=== PATIENT | female | born 1950 | race Caucasian/White ===

== ENCOUNTER 2016-10-21 18:23 | Emergency (ER) | payer MEDICARE ==
[~2016-10-21] VITALS: Ht 162.6 cm; Wt 88.0 kg
[2016-10-21 18:58] VITALS: BP 152/82; PULSE 75; RESP 16; TEMP 97.7; O2SAT 99
[2016-10-21] MEDS ORDERED: CYCL1TAB29 PO (19:11)
[2016-10-21] MEDS ORDERED: MORP1TAB25 PO (19:11)
[2016-10-21] MEDS ORDERED: CLON1TAB PO (19:11)
[2016-10-21] MEDS ORDERED: SODIUM CHLOR 0.9% 1000 ML INJ 1,000 ML IV ONE (19:11)
[2016-10-21] MEDS ORDERED: ATEN50TA PO (19:15)
[2016-10-21] MEDS ORDERED: SODIUM CHLORIDE 0.9% FLUSH 5 ML FLUSH IVF PRN (19:15)
--- NOTE | 2016-10-21 20:12 | PD ---
HPI Chief Complaint: OD/ Ingestion Time Seen by Provider: 19:11 Travel History International Travel<30 days: No Contact w/Intl Traveler<30days: No Traveled to known affect area: No History of Present Illness HPI 66-year-old female arrives to the ER by EMS. Her was unable to wake her up this afternoon. The patient reports having suffered with insomnia last night. She took 2 tablets of 30 mg sustained release morphine around midnight. 2 hours later she ingested a second dose of morphine, this time to tablets 15 mg morphine. At some point after that perhaps 4 hours later she ingested 2 mg Klonopin. Instead the could not wake her up as she called EMS. EMS gave Narcan. In the ER the patient answers questions and reports the story provided above in addition to chronic pain evidently worse than normal. She has a history of lumbosacral surgery. Additionally she has suffered a hip contusion recently. Finally she reports vomiting after any oral intake yesterday. She denies intentional over dose or intent of self-harm. PFSH Past Medical History Arthritis: Yes Asthma: No Autoimmune Disease: No Blood Disorders: No Anxiety: Yes Depression: Yes Heart Rhythm Problems: No Cancer: Yes (UTERINE CA ) Cardiovascular Problems: Yes High Cholesterol: No Chest Pain: No Congestive Heart Failure: No COPD: No Cerebrovascular Accident: No Diabetes: No Diminished Hearing: No Endocrine: No Gastrointestinal Disorders: Yes GERD: Yes Glaucoma: No Genitourinary: No Headaches: No Hepatitis: No Hiatal Hernia: No Hypertension: Yes Immune Disorder: No Kidney Stones: No Musculoskeletal: Yes Neurologic: No Psychiatric: Yes Respiratory: No Myocardial Infarction: No Renal Failure: No Seizures: No Sickle Cell Disease: No Sleep Apnea: No Thyroid Disease: No Ulcer: No Tetanus Vaccination: < 5 Years Influenza Vaccination: Yes Past Surgical History Abdominal Surgery: Yes (LAP COLLIE, APPENTECTOMY) AICD: No Cardiac Surgery: No Ear Surgery: No Endocrine Surgery: No Eye Surgery: No Genitourinary Surgery: No Gynecologic Surgery: No Joint Replacement: No Neurologic Surgery: Yes (L2-L5 FUSION) Oral Surgery: No Pacemaker: No Thoracic Surgery: No Other Surgery: Yes Social History Alcohol Use: No Tobacco Use: No Substance Use: No Allergies-Medications (Allergen,Severity, Reaction): Coded Allergies: No Known Allergies (Unverified , 10/21/16) Reported Meds & Prescriptions Reported Meds & Active Scripts Active Reported Atenolol 50 Mg Tab 50 Mg PO DAILY Flexeril (Cyclobenzaprine HCl) 10 Mg Tab 10 Mg PO TID Morphine ER (Morphine Sulfate) 30 Mg Tab 30 Mg PO BID Clonazepam 1 Mg Tab 1 Mg PO TID Review of Systems Except as stated in HPI: all other systems reviewed are Neg General / Constitutional: No: Fever, Chills Musculoskeletal: Positive: Pain Physical Exam Narrative GENERAL: 66-year-old female lying supine in bed speaking in full sentences SKIN: Warm and dry. HEAD: Atraumatic. Normocephalic. EYES: Pupils equal and round. No scleral icterus. No injection or drainage. ENT: No nasal bleeding or discharge. Mucous membranes pink and moist. NECK: Trachea midline. No JVD. CARDIOVASCULAR: Regular rate and rhythm. No murmur appreciated. RESPIRATORY: No accessory muscle use. Clear to auscultation. Breath sounds equal bilaterally. GASTROINTESTINAL: Abdomen soft, non-tender, nondistended. Hepatic and splenic margins not palpable. MUSCULOSKELETAL: No obvious deformities. No clubbing. No cyanosis. No edema. NEUROLOGICAL: Awake and alert. Answers questions with normal memory and mentation. There is no focal neurologic deficit and motor function is grossly preserved. PSYCHIATRIC: Chronic pain. Denies suicidal or homicidal ideation. Data Data Last Documented VS Vital Signs Date Time Temp Pulse Resp B/P Pulse Ox O2 Delivery O2 Flow Rate FiO2 10/21/16 18:58 97.7 75 16 152/82 99 VS reviewed Orders Basic Metabolic Panel (Bmp) (10/21/16 19:11) Complete Blood Count With Diff (10/21/16 19:11) Urinalysis - C+S If Indicated (10/21/16 19:11) Iv Access Insert/Monitor (10/21/16 19:11) Ecg Monitoring (10/21/16 19:11) Oximetry (10/21/16 19:11) Sodium Chloride 0.9% Flush (Ns Flush) (10/21/16 19:15) Sodium Chlor 0.9% 1000 Ml Inj (Ns 1000 M (10/21/16 19:11) Drug Screen, Random Urine (10/21/16 19:11) Alcohol (Ethanol) (10/21/16 19:11) Salicylates (Aspirin) (3/20/17 19:11) Tylenol (Acetaminophen) (10/21/16 19:11) Labs Laboratory Tests Test 10/21/16 19:15 White Blood Count 7.8 TH/MM3 Red Blood Count 4.70 MIL/MM3 Hemoglobin 13.6 GM/DL Hematocrit 41.5 % Mean Corpuscular Volume 88.2 FL Mean Corpuscular Hemoglobin 28.9 PG Mean Corpuscular Hemoglobin 32.7 % Concent Red Cell Distribution Width 14.6 % Platelet Count 266 TH/MM3 Mean Platelet Volume 7.8 FL Neutrophils (%) (Auto) 44.6 % Lymphocytes (%) (Auto) 36.9 % Monocytes (%) (Auto) 11.4 % Eosinophils (%) (Auto) 6.5 % Basophils (%) (Auto) 0.6 % Neutrophils # (Auto) 3.5 TH/MM3 Lymphocytes # (Auto) 2.9 TH/MM3 Monocytes # (Auto) 0.9 TH/MM3 Eosinophils # (Auto) 0.5 TH/MM3 Basophils # (Auto) 0.0 TH/MM3 CBC Comment DIFF FINAL Differential Comment Urine Color LIGHT-YELLOW Urine Turbidity CLEAR Urine pH 5.5 Urine Specific [place] 1.011 Urine Protein NEG mg/dL Urine Glucose (UA) NEG mg/dL Urine Ketones NEG mg/dL Urine Occult Blood NEG Urine Nitrite NEG Urine Bilirubin NEG Urine Urobilinogen LESS THAN 2.0 MG/DL Urine Leukocyte Esterase MOD Urine WBC 1 /hpf Urine Squamous Epithelial <1 /hpf Cells Microscopic Urinalysis Comment CULT NOT INDICATED Sodium Level 139 MEQ/L Potassium Level 5.1 MEQ/L Chloride Level 105 MEQ/L Carbon Dioxide Level 27.0 MEQ/L Anion Gap 7 MEQ/L Blood Urea Nitrogen 25 MG/DL Creatinine 0.96 MG/DL Estimat Glomerular Filtration 58 ML/MIN Rate Random Glucose 94 MG/DL Calcium Level 8.9 MG/DL Salicylates Level LESS THAN 1.7 MG/DL Urine Opiates Screen POS Acetaminophen Level LESS THAN 2.0 MCG/ML Urine Barbiturates Screen NEG Urine Amphetamines Screen NEG Urine Benzodiazepines Screen NEG Urine Cocaine Screen NEG Urine Cannabinoids Screen NEG Ethyl Alcohol Level LESS THAN 3 MG/DL [facility] Medical Decision Making Medical Screen Exam Complete: Yes Emergency Medical Condition: Yes Medical Record Reviewed: Yes Differential Diagnosis Opioid overdose, chronic pain, acute or chronic pain, opioid dependence, benzodiazepine overdose Narrative Course Patient has rested comfortably throughout ER stay. Her workup reveals mild prerenal azotemia and is otherwise normal. CBC & BMP Diagram 10/21/16 19:15 Urinalysis no UTI Urine tox screen positive for opiates Alcohol Tylenol salicylates all negative Pt has follow up with primary care provider in two days. We've provided copy of work up today at her request. confirms no intent of self-harm. Pt understands to be very careful with dosing her new pain medications. does at well. Pt has remained aox3 throughout ER stay and is ready for discharge. Diagnosis Primary Impression: Polypharmacy Additional Impressions: Insomnia Qualified Code: G47.00 - Insomnia, unspecified type Chronic pain Qualified Code: G89.29 - Other chronic pain Medication side effect Qualified Code: T88.7XXA - Medication side effect, initial encounter Referrals: Primary Care Physician 2 days Additional Instructions: You have a choice when it comes to health care, and we are glad that you chose [facility]. Hopefully, we have met your expectations on today's visit. You are welcome to return to [facility] at any time, as we are committed to meeting the health care needs of our community. Please use your pain control medications only as prescribed. Please never take any more than is directed by your pain specialist. Med/Other Pt SpecificInfo: No Change to Meds Disposition: 01 DISCHARGE HOME Condition: Crow Paez MD Oct 21, 2016 20:12
[2016-10-21 20:19] LABS: BLOOD, URINE NEG (NEG); GLUCOSE,URINE NEG (NEG); KETONE, URINE NEG (NEG); NITRITE,URINE NEG (NEG); PH, URINE 5.5 (5.0-8.5); SQUAMOUS EPITHELIAL CELL URINE <1 /hpf (0-5); URINE COLOR LIGHT-YELLOW (YELLW/STRAW)
[2016-10-21 20:20] LABS: AUTOMATED NEUTROPHIL # 3.5 TH/MM3 (1.8-7.7); BASOPHIL % 0.6 % (0.0-2.0); EOSINOPHIL # 0.5 TH/MM3 (0-0.4); EOSINOPHIL % 6.5 % (0.0-4.0); HEMATOCRIT 41.5 % (35.0-46.0); HEMO FLAGS DIFF FINAL; LYMPH % 36.9 % (9.0-44.0); LYMPHOCYTE # 2.9 TH/MM3 (1.0-4.8); MEAN CELL VOLUME 88.2 FL (80.0-100.0); MEAN CORPUSCULAR HEMOGLOBIN 28.9 PG (27.0-34.0); MEAN CORPUSCULAR HGB CONC 32.7 % (32.0-36.0); MONO % 11.4 % (0.0-8.0); NEUT % 44.6 % (16.0-70.0); PLATELET COUNT 266 TH/MM3 (150-450); RED CELL DISTRIBUTION WIDTH 14.6 % (11.6-17.2); WHITE BLOOD COUNT 7.8 TH/MM3 (4.0-11.0)
[2016-10-21 20:23] LABS: COMMENT (UR) CULT NOT INDICATED; CULTURE IF INDICATED CULT NOT INDICATED
[2016-10-21 20:25] LABS: AMPHETAMINE, URINE NEG (NEG); BARBITURATES, URINE NEG (NEG); COCAINE, URINE NEG (NEG)
[2016-10-21 20:45] LABS: ACETAMINOPHEN LESS THAN 2.0 MCG/ML (10.0-30.0); ANION GAP 7 MEQ/L (5-15); BLOOD UREA NITROGEN 25 MG/DL (7-18); CHLORIDE 105 MEQ/L (98-107); GLOMERULAR FILTRATION RATE 58 ML/MIN (>89); SODIUM (NA) 139 MEQ/L (136-145)
[2016-10-21 20:52] LABS: POTASSIUM 5.1 MEQ/L (3.5-5.1)
[2016-10-21 21:00] VITALS: BP 128/81; PULSE 67; RESP 16; O2SAT 99
== END 2016-10-21 21:25 | disposition home or self-care (01) ==
LOC: NEPE 18:23
DX: T40.2X1A Poisoning by other opioids, accidental (unintentional), initial encounter (principal); G47.00 Insomnia, unspecified; G89.29 Other chronic pain; R79.89 Other specified abnormal findings of blood chemistry; K21.9 Gastro-esophageal reflux disease without esophagitis; I10 Essential (primary) hypertension
CPT/HCPCS: 80048; 80307; 81001; 85025; 99284; J7030

== ENCOUNTER 2016-12-06 14:50 | Emergency (ER) | payer MEDICARE ==
[~2016-12-06] VITALS: Ht 162.6 cm; Wt 80.0 kg
[~2016-12-06 14:50] MED LIST: ATEN50TA PO; CLON1TAB PO; CYCL1TAB29 PO; MORP1TAB25 PO
[2016-12-06 14:52] VITALS: BP 121/71; PULSE 64; RESP 16; TEMP 98; O2SAT 95
--- NOTE | 2016-12-06 15:16 | PD ---
HPI Chief Complaint: Pain: Acute or Chronic Time Seen by Provider: 15:03 Travel History International Travel<30 days: No Contact w/Intl Traveler<30days: No Traveled to known affect area: No History of Present Illness HPI This Is a 66-year-old female who was sent here by her primary care physician to rule out DVT. She reports over the past month she has been experiencing pain in the lateral aspect of the right calf. She describes it as a throbbing/ aching pain that seems to be localized to the lateral aspect of the right calf. Sometimes with palpation of the right thigh this causes pain to radiate to her right calf. The only female seems to help is the application of ice to her skin. She is on chronic morphine for chronic back pain. She denies any injury. She denies any recent travel, recent surgery. Denies any chest pain, shortness of breath. She saw her primary care physician today and was referred here to rule out DVT. No history of PE or DVT. No other complaints. PFSH Past Medical History Hx Anticoagulant Therapy: Yes Arthritis: Yes Asthma: No Autoimmune Disease: No Blood Disorders: No Anxiety: Yes Depression: Yes Heart Rhythm Problems: No Cancer: Yes (UTERINE CA ) Cardiovascular Problems: Yes (HTN ) High Cholesterol: No Chest Pain: No Congestive Heart Failure: No COPD: No Cerebrovascular Accident: No Diabetes: Yes Patient Takes Glucophage: No Diminished Hearing: No Endocrine: No Gastrointestinal Disorders: Yes GERD: Yes Glaucoma: No Genitourinary: No Headaches: No Hepatitis: No Hiatal Hernia: No Hypertension: Yes Immune Disorder: No Kidney Stones: No Musculoskeletal: Yes Neurologic: No Psychiatric: Yes Respiratory: No Myocardial Infarction: No Renal Failure: No Seizures: No Sickle Cell Disease: No Sleep Apnea: No Thyroid Disease: No Ulcer: No Past Surgical History Abdominal Surgery: Yes (LAP COLLIE, APPENTECTOMY) AICD: No Cardiac Surgery: No Ear Surgery: No Endocrine Surgery: No Eye Surgery: No Genitourinary Surgery: No Gynecologic Surgery: No Joint Replacement: No Neurologic Surgery: Yes (L2-L5 FUSION) Oral Surgery: No Pacemaker: No Thoracic Surgery: No Other Surgery: Yes Social History Alcohol Use: No Tobacco Use: No Substance Use: No Allergies-Medications (Allergen,Severity, Reaction): Coded Allergies: No Known Allergies (Unverified , 10/21/16) Reported Meds & Prescriptions Reported Meds & Active Scripts Active Lidoderm Patch 12 HR (Lidocaine) 5% Patch 1 Patch TOPICAL DAILY PRN Remove patch after 12 hours Reported Atenolol 50 Mg Tab 50 Mg PO DAILY Flexeril (Cyclobenzaprine HCl) 10 Mg Tab 10 Mg PO TID Morphine ER (Morphine Sulfate) 30 Mg Tab 30 Mg PO BID Clonazepam 1 Mg Tab 1 Mg PO TID Review of Systems Except as stated in HPI: all other systems reviewed are Neg Physical Exam Narrative GENERAL: Well-developed well-nourished female in no acute distress SKIN: Warm and dry. There is no erythema, bruising or soft tissue swelling. HEAD: Atraumatic. Normocephalic. EYES: Pupils equal and round. No scleral icterus. No injection or drainage. ENT: No nasal bleeding or discharge. Mucous membranes pink and moist. NECK: Trachea midline. No JVD. CARDIOVASCULAR: Regular rate and rhythm. No murmur appreciated. RESPIRATORY: No accessory muscle use. Clear to auscultation. Breath sounds equal bilaterally. GASTROINTESTINAL: Abdomen soft, non-tender, nondistended. Hepatic and splenic margins not palpable. MUSCULOSKELETAL: No obvious deformities. There is no lower extremity edema. The patient has a negative Homans bilaterally. She has tenderness to palpation to the lateral aspect of the right calf musculature. The Achilles tendon is intact and nontender. There is no tenderness to palpation to the right thigh, knee, ankle or foot. The patient maintains full range of motion of the lower extremities. 2+ dorsalis pedis and posterior tibial pulses bilaterally. NEUROLOGICAL: Awake and alert. No obvious cranial nerve deficits. Motor grossly within normal limits. Normal speech. Data Data Last Documented VS Vital Signs Date Time Temp Pulse Resp B/P Pulse Ox O2 Delivery O2 Flow Rate FiO2 12/06/16 15:07 82 18 12/06/16 14:52 98.0 121/71 95 Orders Us Leg Venous Doppler (12/06/16 15:12) Tibia/Fibula (Ap/Lat) (12/06/16 ) Ketorolac Inj (Toradol Inj) (12/06/16 15:45) [facility] Medical Decision Making Medical Screen Exam Complete: Yes Emergency Medical Condition: Yes Medical Record Reviewed: Yes Differential Diagnosis Muscle strain, muscle cramp, subcutaneous cyst, cellulitis, DVT, subacute fibular fracture, malignancy Narrative Course This is a 66-year-old female with focal lateral right calf pain for 1 month with no injury. On examination her pain is focally localize the lateral proximal right calf and is reproducible palpation. There is no pain with passive or active dorsi and plantar flexion of the ankle, no pain with flexion and extension of the right hip, knee or ankle. There is no evidence of cellulitic changes, compartment syndrome. There is no lower extremity edema. She was sent here by her primary care physician rule out DVT. Doppler ultrasound was performed and is negative. The area fibular x-ray to rule out subacute fibular fracture was performed and is negative. Etiology of this pain is unknown and she is encouraged to follow-up with her primary care physician for further evaluation. She will be discharged with Lidoderm patches which should help with her focal pain. She also takes morphine prescribed by pain management and I don't feel that additional opiate medication is the solution here. Diagnosis Primary Impression: Right calf pain Additional Instructions: Lidoderm patch as needed. Ice pack to effected area as needed. Follow-up with primary care physician. Return for any emergent medical conditions. Med/Other Pt SpecificInfo: Prescription(s) given Scripts Lidocaine Patch 12 HR (Lidoderm Patch 12 HR)5% Patch1 Patch TOPICAL DAILY PRN ( PAIN) #1 BOX Ref 1 Remove patch after 12 hours Prov:Yong Raygoza MD 12/06/16 Disposition: 01 DISCHARGE HOME Condition: Stable Real Lunsford December 06, 2016 15:15
--- NOTE | 2016-12-06 15:37 | RADRPT ---
EXAM DATE/TIME: 12/06/2016 15:23 [facility] COMPARISON: No previous studies available for comparison. INDICATIONS : Right tibia/fibula pain on mid-lateral side. MEDICAL HISTORY : None. SURGICAL HISTORY : None. ENCOUNTER: Initial ACUITY: 1 month PAIN SCORE: 8/10 LOCATION: Right tibia/fibula. FINDINGS: Two view examination of the right tibia demonstrates no evidence of fracture or dislocation. Mild art hritic changes present in the knee. Bony mineralization is normal. The soft tissue structures are in tact. CONCLUSION: Unremarkable examination of the right tibia. Samuel Manrique MD on December 06, 2016 at 15:34 Board Certified Radiologist. This report was verified electronically.
[2016-12-06] MEDS ORDERED: KETOROLAC TROMETHAMINE 60 MG/2 ML (IM) VIAL IM ONE (15:45)
--- NOTE | 2016-12-06 15:53 | RADRPT ---
EXAM DATE/TIME: 12/06/2016 15:34 [facility] COMPARISON: No previous studies available for comparison. INDICATIONS : Bilateral leg swelling. MEDICAL HISTORY : Congestive heart failure. Hypercholesterolemia. Hypertension. Lower extremity ulcers. SURGICAL HISTORY : Umbilical hernia repair. ENCOUNTER: Initial ACUITY: 1 week PAIN SCORE: 10/10 LOCATION: Bilateral legs. TECHNIQUE: Venous ultrasound of the leg was performed from the inguinal ligament to the proximal calf. Real-massiel e, color Doppler and spectral tracing, compression and augmentation techniques were used. FINDINGS: There is normal compressibility of the deep venous system from the inguinal region to the proximal ca lf. No echogenic clot is seen in the lumen of the common femoral, femoral, popliteal, and posterior tibial veins. There is a normal response of the venous system to proximal and distal augmentation an d respiration. CONCLUSION: Normal examination. Samuel Manrique MD on December 06, 2016 at 15:50 Board Certified Radiologist. This report was verified electronically.
[2016-12-06] MEDS ORDERED: LIDO5DIS35 TOPICAL (16:10)
== END 2016-12-06 16:38 | disposition home or self-care (01) ==
LOC: NEPD 14:50
DX: M79.661 Pain in right lower leg (principal)
CPT/HCPCS: 73590; 93971; 96372; 99284; J1885

== ENCOUNTER 2016-12-25 14:37 | Emergency (ER) | payer MEDICARE ==
[~2016-12-25] VITALS: Ht 162.6 cm; Wt 85.0 kg
[~2016-12-25 14:37] MED LIST changes: +LIDO5DIS35 TOPICAL
[2016-12-25 14:38] VITALS: BP 130/81; PULSE 76; RESP 18; TEMP 98.5; O2SAT 96
--- NOTE | 2016-12-25 14:44 | PD ---
Physical Exam Time Seen by Provider: 14:42 Narrative 66yo F c/o L leg pain when she squeezes it and edema x 3days. Denies hx of DVT. Denies anticoagulants. Denies paraesthesias. Denies N,V, F. Patient seen in triage. VS reviewed. Awaiting bed placement. Data Data Last Documented VS Vital Signs Date Time Temp Pulse Resp B/P Pulse Ox O2 Delivery O2 Flow Rate FiO2 12/25/16 14:38 98.5 76 18 130/81 96 Room Air [facility] Supervised Visit with SONU: Rebecca Huerta December 25, 2016 14:44
--- NOTE | 2016-12-25 15:39 | PD ---
HPI Chief Complaint: Edema Time Seen by Provider: 15:39 Travel History International Travel<30 days: No Contact w/Intl Traveler<30days: No Traveled to known affect area: No History of Present Illness HPI 66-year-old female with a history of hypertension and chronic low back pain presents to the emergency department for evaluation of left leg edema for 3 days. Patient denies any injury or trauma to her leg. States that this swelling was sudden onset. States it the swelling has been the same for the last 3 days, no aggravating or alleviating factors. The swelling extends from the knee to the foot. Denies any pain, numbness or tingling, weakness, fever, chills, nausea, vomiting, chest pain, shortness of breath. She does also complain of urinary frequency and urgency incontinence for the last 3-4 months. States she has not seen her doctor about this because her is ill and she has been taking care of him. No other complaints. PFSH Past Medical History Hx Anticoagulant Therapy: Yes Arthritis: Yes Asthma: No Autoimmune Disease: No Blood Disorders: No Anxiety: Yes Depression: Yes Heart Rhythm Problems: No Cancer: Yes (UTERINE CA ) Cardiovascular Problems: Yes (HTN ) High Cholesterol: No Chest Pain: No Congestive Heart Failure: No COPD: No Cerebrovascular Accident: No Diabetes: Yes Diminished Hearing: No Endocrine: No Gastrointestinal Disorders: Yes GERD: Yes Glaucoma: No Genitourinary: No Headaches: No Hepatitis: No Hiatal Hernia: No Hypertension: Yes Immune Disorder: No Kidney Stones: No Musculoskeletal: Yes Neurologic: No Psychiatric: Yes Respiratory: No Myocardial Infarction: No Renal Failure: No Seizures: No Sickle Cell Disease: No Sleep Apnea: No Thyroid Disease: No Ulcer: No Past Surgical History Abdominal Surgery: Yes (LAP COLLIE, APPENTECTOMY) AICD: No Cardiac Surgery: No Ear Surgery: No Endocrine Surgery: No Eye Surgery: No Genitourinary Surgery: No Gynecologic Surgery: No Joint Replacement: No Neurologic Surgery: Yes (L2-L5 FUSION) Oral Surgery: No Pacemaker: No Thoracic Surgery: No Other Surgery: Yes Social History Alcohol Use: No Tobacco Use: No Substance Use: No Allergies-Medications (Allergen,Severity, Reaction): Coded Allergies: No Known Allergies (Unverified , 10/21/16) Reported Meds & Prescriptions Reported Meds & Active Scripts Active Keflex (Cephalexin) 500 Mg Cap 500 Mg PO Q12H 7 Days Lidoderm Patch 12 HR (Lidocaine) 5% Patch 1 Patch TOPICAL DAILY PRN Remove patch after 12 hours Reported Venlafaxine ER 24 HR (Venlafaxine HCl) 150 Mg Tab 150 Mg PO BID Sumatriptan (Sumatriptan Succinate) 100 Mg Tab 100 Mg PO ONCE PRN If a satisfactory response has not been obtained at 2 hours, a second dose may be administered Atenolol 50 Mg Tab 50 Mg PO DAILY Flexeril (Cyclobenzaprine HCl) 10 Mg Tab 10 Mg PO TID Morphine ER (Morphine Sulfate) 30 Mg Tab 30 Mg PO BID Clonazepam 1 Mg Tab 1 Mg PO TID Review of Systems Except as stated in HPI: all other systems reviewed are Neg Physical Exam Narrative GENERAL: Well-nourished and well-developed pleasant female patient in no acute distress who is nontoxic appearing. SKIN: Warm and dry. HEAD: Normocephalic and atraumatic. EYES: No injection, drainage, or hyphema noted. PERRLA. EOMI. ENT: No nasal drainage noted. Oropharynx is clear. NECK: Supple and the trachea is midline. CARDIOVASCULAR: Regular rate and rhythm. RESPIRATORY: Breath sounds are equal bilaterally with no accessory muscle use, wheezing, rhonchi, or crackles. GASTROINTESTINAL: Abdomen is soft, non-tender, and nondistended. MUSCULOSKELETAL: Left leg edema 2+ from knee to foot. DP pulses are 2+ bilaterally. Capillary refills within normal limits. Sensation is intact. Negative Homans sign. No obvious deformities, cyanosis, or ecchymosis is present throughout the upper and lower extremities. Patient has full range of motion without any signs of neurovascular compromise. NEUROLOGICAL: Awake, alert, and oriented. Normal speech and gait. Cranial nerves are grossly intact. Data Data Last Documented VS Vital Signs Date Time Temp Pulse Resp B/P Pulse Ox O2 Delivery O2 Flow Rate FiO2 12/25/16 14:38 98.5 76 18 130/81 96 Room Air Orders Us Leg Venous Doppler (12/25/16 ) Urinalysis - C+S If Indicated (12/25/16 16:55) Basic Metabolic Panel (Bmp) (12/25/16 16:55) Lidocaine 5% Patch.12 Hr (Lidoderm 5% Pa (12/25/16 17:00) Urine Culture (12/25/16 17:00) Labs Laboratory Tests Test 12/25/16 17:00 Urine Color YELLOW Urine Turbidity HAZY Urine pH 8.0 Urine Specific [place] 1.013 Urine Protein NEG mg/dL Urine Glucose (UA) NEG mg/dL Urine Ketones NEG mg/dL Urine Occult Blood NEG Urine Nitrite NEG Urine Bilirubin NEG Urine Urobilinogen LESS THAN 2.0 MG/DL Urine Leukocyte Esterase LARGE Urine RBC 3 /hpf Urine WBC 14 /hpf Urine Squamous Epithelial 1 /hpf Cells Urine Bacteria RARE /hpf Urine Hyaline Casts 1 /lpf Microscopic Urinalysis Comment CULTURE INDICATED Sodium Level 140 MEQ/L Potassium Level 4.3 MEQ/L Chloride Level 104 MEQ/L Carbon Dioxide Level 31.0 MEQ/L Anion Gap 5 MEQ/L Blood Urea Nitrogen 21 MG/DL Creatinine 0.80 MG/DL Estimat Glomerular Filtration 72 ML/MIN Rate Random Glucose 85 MG/DL Calcium Level 8.6 MG/DL MDM Medical Decision Making Medical Screen Exam Complete: Yes Emergency Medical Condition: Yes Differential Diagnosis Lymphedema versus dependent edema versus DVT versus UTI Narrative Course 66-year-old female presents to the emergency department for 3 days history of left leg swelling. Patient is afebrile, vital signs are stable. She does have edema of the left leg. The left lower extremity is neurovascularly intact. Ultrasound of the left leg has been ordered and is pending. She is also reporting several month history of urinary frequency and incontinence. We'll do a urinalysis and BMP. Ultrasound of the left leg is negative for DVT. BMP is unremarkable. Urinalysis shows large leukocyte esterase, 14 white blood cells, rare bacteria. The patient has a urinary tract infection will be treated with Keflex. Discussed with the patient supportive care for edema and advised follow-up as an outpatient with her PCP. Patient verbalizes understanding and agreement with treatment plan. I discussed the case with my attending physician Dr. Dawson who is aware of the patients history, physical examination findings, and treatment plan. Diagnosis Primary Impression: Leg edema, left Additional Impression: Urinary tract infection Qualified Code: N39.0 - Urinary tract infection without hematuria, site unspecified Referrals: Primary Care Physician Patient Instructions: General Instructions, Leg Edema (ED), Urinary Tract Infection in Women (ED) Additional Instructions: Your ultrasound of the left leg is negative for DVT. You do also have a urinary tract infection and will be prescribed antibiotics. Follow-up with your Primary Care Physician. Return to the ED for any acute worsening of symptoms. Med/Other Pt SpecificInfo: Prescription(s) given Scripts Cephalexin (Keflex)500 Mg Pve105 Mg PO Q12H 7 Days Ref 0 Prov:Scooter Dawson MD 12/25/16 Disposition: 01 DISCHARGE HOME Condition: Stable Rebecca Mariscal December 25, 2016 15:39
[2016-12-25] MEDS ORDERED: SUMA100T2 PO (15:44)
[2016-12-25] MEDS ORDERED: VENL150T PO (15:44)
[2016-12-25] MEDS ORDERED: LIDOCAINE HCL 5% PATCH T-DERMAL ONE (17:00)
--- NOTE | 2016-12-25 17:03 | RADRPT ---
EXAM DATE/TIME: 12/25/2016 16:34 [facility] COMPARISON: No previous studies available for comparison. INDICATIONS : Left leg swelling. MEDICAL HISTORY : Arthritis. Uterine cancer. HTN. GERD. Diabetes. Depression. Anxiety. Anticoagulant therapy. SURGICAL HISTORY : Appendectomy. Hysterectomy. L2-L5 fusion. Right knee arthropasty. Right rotator cuff repair. ENCOUNTER: Initial ACUITY: 3 days PAIN SCORE: 0/10 LOCATION: Left leg. TECHNIQUE: Venous ultrasound of the leg was performed from the inguinal ligament to the proximal calf. Real-massiel e, color Doppler and spectral tracing, compression and augmentation techniques were used. FINDINGS: There is normal compressibility of the deep venous system from the inguinal region to the proximal ca lf. No echogenic clot is seen in the lumen of the common femoral, femoral, popliteal, and posterior tibial veins. There is a normal response of the venous system to proximal and distal augmentation an d respiration. CONCLUSION: Normal examination. Samuel Manrique MD on December 25, 2016 at 17:00 Board Certified Radiologist. This report was verified electronically.
--- NOTE | 2016-12-25 17:14 | PD ---
Data Data Last Documented VS Vital Signs Date Time Temp Pulse Resp B/P Pulse Ox O2 Delivery O2 Flow Rate FiO2 12/25/16 14:38 98.5 76 18 130/81 96 Room Air Orders Us Leg Venous Doppler (12/25/16 ) Urinalysis - C+S If Indicated (12/25/16 16:55) Basic Metabolic Panel (Bmp) (12/25/16 16:55) Lidocaine 5% Patch.12 Hr (Lidoderm 5% Pa (12/25/16 17:00) MDM Supervised Visit with SONU: Yes Narrative Course The history, exam, and medical decision-making in the associated mid-level provider note were completed with my assistance. I reviewed and agree with the findings presented. I attest that I had a [id number] encounter with the patient on the same day, and personally performed and documented my assessment and findings in the medical record. *My assessment and Findings: Lower extremity edema, some right calf pain, now left-sided edema, unclear etiology. Ultrasound rule out DVT. We'll check labs, rule out kidney disease. Likely outpatient follow-up for with probably lymphedema. Good pulses, no evidence of arterial insufficiency. Scooter Dawson MD December 25, 2016 17:14
[2016-12-25 17:15] LABS: BACTERIA, URINE RARE /hpf; BLOOD, URINE NEG (NEG); COMMENT (UR) CULTURE INDICATED; CULTURE IF INDICATED CULTURE INDICATED; GLUCOSE,URINE NEG (NEG); HYALINE CAST, URINE 1 /lpf (RARE); KETONE, URINE NEG (NEG); NITRITE,URINE NEG (NEG); SQUAMOUS EPITHELIAL CELL URINE 1 /hpf (0-5); URINE COLOR YELLOW (YELLW/STRAW)
[2016-12-25 17:27] LABS: POTASSIUM 4.3 MEQ/L (3.5-5.1)
[2016-12-25] MEDS ORDERED: CEPH-460 PO (17:34)
== END 2016-12-25 18:39 | disposition home or self-care (01) ==
LOC: NEPD 14:37
DX: R60.0 Localized edema (principal); M79.605 Pain in left leg; N39.0 Urinary tract infection, site not specified; B96.89 Other specified bacterial agents as the cause of diseases classified elsewhere; I10 Essential (primary) hypertension
CPT/HCPCS: 80048; 81001; 87086; 93971; 99284

== ENCOUNTER 2017-02-25 04:52 | Emergency (ER) | payer MEDICARE ==
[~2017-02-25] VITALS: Ht 162.6 cm; Wt 80.0 kg
[~2017-02-25 04:52] MED LIST changes: +CEPH-460 PO; +SUMA100T2 PO; +VENL150T PO
[2017-02-25 04:54] VITALS: BP 126/66; PULSE 78; RESP 16; TEMP 98.5; O2SAT 95
[2017-02-25] MEDS ORDERED: MSIR30 PO (05:08)
--- NOTE | 2017-02-25 05:26 | PD ---
HPI Chief Complaint: Fall Time Seen by Provider: 05:10 Travel History International Travel<30 days: No Contact w/Intl Traveler<30days: No Traveled to known affect area: No History of Present Illness HPI The patient is a 66-year-old female who presents to the emergency department after a mechanical fall with a closed head injury. The patient states she was leaning over when she suddenly lost her balance and fell 4, striking her head on a concrete wall. The patient complains of a hematoma over the superior aspect of her head as well as a laceration above the right eye which bled initially but is currently stopped. The patient's last tetanus shot was greater than 5 years ago. The patient denies any loss of consciousness, did have a mild headache, but took 2 Excedrin which alleviated her headache. The patient denies taking any anticoagulants such as aspirin, Plavix, Coumadin, or novel oral anticoagulants. She denies any Neck pain or focal neurologic deficits. The patient's symptoms are mild to moderate, exacerbated after falling, and there are no current alleviating factors. PFSH Past Medical History Hx Anticoagulant Therapy: Yes Arthritis: Yes Asthma: No Autoimmune Disease: No Blood Disorders: No Anxiety: Yes Depression: Yes Heart Rhythm Problems: No Cancer: Yes (UTERINE CA ) Cardiovascular Problems: Yes (HTN ) High Cholesterol: No Chest Pain: No Congestive Heart Failure: No COPD: No Cerebrovascular Accident: No Diabetes: Yes (BORDERLINE) Patient Takes Glucophage: No Diminished Hearing: No Endocrine: No Gastrointestinal Disorders: Yes GERD: Yes Glaucoma: No Genitourinary: Yes (urinary incontinence) Headaches: No Hepatitis: No Hiatal Hernia: No Hypertension: Yes Immune Disorder: No Kidney Stones: No Musculoskeletal: Yes Psychiatric: Yes Myocardial Infarction: No Renal Failure: No Seizures: No Sickle Cell Disease: No Sleep Apnea: No Thyroid Disease: No Ulcer: No Tetanus Vaccination: > 5 Years Influenza Vaccination: Yes ?: Not Menopausal: Yes Past Surgical History Abdominal Surgery: Yes (LAP COLLIE, APPENTECTOMY) AICD: No Appendectomy: Yes Cardiac Surgery: No Ear Surgery: No Endocrine Surgery: No Eye Surgery: No Genitourinary Surgery: No Gynecologic Surgery: No Hysterectomy: Yes Joint Replacement: No Neurologic Surgery: Yes (L2-L5 FUSION) Oral Surgery: No Pacemaker: No Thoracic Surgery: No Other Surgery: Yes Social History Alcohol Use: No Tobacco Use: No Substance Use: No Allergies-Medications (Allergen,Severity, Reaction): Coded Allergies: No Known Allergies (Unverified , 02/25/17) Reported Meds & Prescriptions Reported Meds & Active Scripts Active Reported Morphine IR (Morphine Sulfate) 30 Mg Tab 30 Mg PO Q8HR PRN Venlafaxine ER 24 HR (Venlafaxine HCl) 150 Mg Tab 150 Mg PO BID Sumatriptan (Sumatriptan Succinate) 100 Mg Tab 100 Mg PO ONCE PRN If a satisfactory response has not been obtained at 2 hours, a second dose may be administered Atenolol 50 Mg Tab 50 Mg PO DAILY Flexeril (Cyclobenzaprine HCl) 10 Mg Tab 10 Mg PO TID Morphine ER (Morphine Sulfate) 30 Mg Tab 30 Mg PO BID Clonazepam 1 Mg Tab 1 Mg PO TID Review of Systems Except as stated in HPI: all other systems reviewed are Neg Eyes: No: Blurred Vision HENT: Positive: Headaches (headache initially that resolved after taking 2 Excedrin), No: Neck Pain Cardiovascular: No: Chest Pain or Discomfort Respiratory: No: Shortness of Breath Gastrointestinal: No: Nausea, Vomiting Skin: Positive Other (laceration above the right eye which bled initially but is currently stopped) Neurologic: Positive: Headache, No: Focal Abnormalities, Paresthesia, Sensory Disturbance Physical Exam Narrative GENERAL: Awake, alert, pleasant 66-year-old female who appears her stated age and is in no acute respiratory distress. SKIN: Focused skin assessment warm/dry. Patient has a 3 cm transverse laceration above the right eyebrow with some dried blood but no active bleeding. HEAD: Hematoma over the right frontal forehead just within the hairline as well as a 3 cm transverse laceration above the right eyebrow. EYES: Pupils equal and round. Pupils are 3 mm bilateral and reactive. EOMs are intact. Patient is a was see fingers at a distance of 2 feet without difficulty. ENT: No nasal bleeding or discharge. Mucous membranes pink and moist. NECK: Trachea midline. No JVD. No tenderness of the cervical vertebrae. CARDIOVASCULAR: Regular rate and rhythm. No murmur appreciated. RESPIRATORY: No accessory muscle use. Clear to auscultation. Breath sounds equal bilaterally. GASTROINTESTINAL: Abdomen soft, non-tender, nondistended. MUSCULOSKELETAL: No obvious deformities. No clubbing. No cyanosis. No edema. NEUROLOGICAL: Awake and alert. No obvious cranial nerve deficits. Motor grossly within normal limits. Normal speech. Nonfocal. Oriented 3. Follows simple commands. PSYCHIATRIC: Appropriate mood and affect; insight and judgment normal. Data Data Last Documented VS Vital Signs Date Time Temp Pulse Resp B/P Pulse Ox O2 Delivery O2 Flow Rate FiO2 02/25/17 04:54 98.5 78 16 126/[address] Brain W/O Iv Contrast(Rout) (02/25/17 ) Tetanus/Diphtheria Tox Adult (Tetanus/Di (02/25/17 05:30) Lidocai-Epi 1%-1:100,000 Inj (Xylocaine- (02/25/17 05:30) MDM Medical Decision Making Medical Screen Exam Complete: Yes Emergency Medical Condition: Yes Medical Record Reviewed: Yes Interpretation(s) Last Impressions Head CT 02/25/17 0000 Signed Impressions: Service Date/Time: Saturday, February 25, 2017 05:26 - CONCLUSION: 1. No acute intracranial abnormality is identified. There is no fracture. 2. Mild subcutaneous soft tissue changes in the right supraorbital region. Samuel Cuellar MD Differential Diagnosis Differential diagnoses includes closed head injury, concussion, laceration, hematoma, contusion, skull fracture, facial fracture, intracranial hemorrhage, subdural hemorrhage, subarachnoid hemorrhage. Narrative Course A CT of the brain was obtained. The patient's laceration was anesthetized 1% lidocaine with epinephrine, irrigated, closed in a single layer fashion. CT the brain reveals subcutaneous air near the laceration site, however, there is no fracture or intracranial hemorrhage. The patient is advised to have her sutures removed in 5-7 days, Tylenol as needed for pain, follow-up with her primary physician. Procedures Procedure Narrative LACERATION LOCATION: Right forehead LENGTH: 3 cm NUMBER OF STITCHES/CHIQUITA: 4 REPAIR: The area of the laceration was prepped with Betadine and sterilely draped. The laceration was infiltrated with 1% lidocaine with epinephrine. The wound was copiously irrigated and explored without evidence of foreign body , tendon injury or neurovascular injury. The wound was closed using 6-0 Ethilon. This was a single layer repair. A sterile dressing was applied. The patient was advised to keep the dressing clean and dry. Patient tolerated the procedure well. Diagnosis Primary Impression: Closed head injury Qualified Code: S09.90XA - Closed head injury, initial encounter Additional Impression: Laceration of face Qualified Code: S01.81XA - Laceration of face, initial encounter Patient Instructions: General Instructions Additional Instructions: Suture removal in 5-7 days. Apply Polysporin twice a day. Wound care instructions. Tylenol as needed for pain. Follow-up with your primary physician. Please provide the patient a copy of her CT results at discharge. Med/Other Pt SpecificInfo: No Change to Meds Disposition: 01 DISCHARGE HOME Condition: Stable Mario Alberto Raza MD Feb 25, 2017 05:26
[2017-02-25] MEDS ORDERED: TETANUS/DIPHTHERIA TOXOID ADULT 0.5 ML VIAL IM ONE (05:30)
[2017-02-25] MEDS ORDERED: LIDOCAINE 1%/EPINEPHrine 1:100,000 SOLN 20 ML VIAL INFIL ONE (05:30)
--- NOTE | 2017-02-25 05:53 | RADRPT ---
EXAM DATE/TIME: 02/25/2017 05:26 [facility] COMPARISON: No previous studies available for comparison. INDICATIONS : Trauma, fell and hit head on wall. Laceration above right eye. RADIATION DOSE: 32.10 CTDIvol (mGy) MEDICAL HISTORY : Hypertension. Gastroesophageal reflux disease. Uterine cancer. SURGICAL HISTORY : Appendectomy. Cholecystectomy.Hysterectomy. ENCOUNTER: Initial ACUITY: 1 day PAIN SCALE: 0/10 LOCATION: cranial TECHNIQUE: Multiple contiguous axial images were obtained of the head. Using automated exposure control and adj ustment of the mA and/or kV according to patient size, radiation dose was kept as low as reasonably a chievable to obtain optimal diagnostic quality images. DICOM format image data is available electro nically for review and comparison. FINDINGS: CEREBRUM: The ventricles are normal. No evidence of midline shift, mass lesion, hemorrhage or acute infarction . No extra-axial fluid collections are seen. POSTERIOR FOSSA: The cerebellum and brainstem are intact. The 4th ventricle is midline. The cerebellopontine angle i s unremarkable. EXTRACRANIAL: There is subcutaneous inflammatory change and air in the right supraorbital region. SKULL: The calvaria is intact. No evidence of skull fracture. CONCLUSION: 1. No acute intracranial abnormality is identified. There is no fracture. 2. Mild subcutaneous soft tissue changes in the right supraorbital region. Samuel Cuellar MD on February 25, 2017 at 5:49 Board Certified Radiologist. This report was verified electronically.
== END 2017-02-25 06:57 | disposition home or self-care (01) ==
LOC: NEPE 04:52
DX: S09.90XA Unspecified injury of head, initial encounter (principal); S01.81XA Laceration without foreign body of other part of head, initial encounter; W18.39XA Other fall on same level, initial encounter; Z23 Encounter for immunization
CPT/HCPCS: 12013; 70450; 90471; 90714

== ENCOUNTER 2017-03-11 01:29 | Inpatient (IN) | payer MEDICARE ==
[~2017-03-11] VITALS: Ht 162.6 cm; Wt 80.0 kg
[~2017-03-11 01:29] MED LIST changes: -CEPH-460 PO; -LIDO5DIS35 TOPICAL; +MSIR30 PO
[2017-03-11 01:32] VITALS: BP 185/101; PULSE 75; RESP 18; O2SAT 100
--- NOTE | 2017-03-11 01:39 | PD ---
HPI Chief Complaint: Chest Pain Time Seen by Provider: 01:39 Travel History International Travel<30 days: No Contact w/Intl Traveler<30days: No Traveled to known affect area: No History of Present Illness HPI The patient is a 66 year old female who presents to the [facility] emergency department with a history of chest heaviness that began at 3 PM at her doctor's office today. She was at her pain management doctor's office for continued treatment of chronic back pain. She began to have a headache and took 2 excedrin. She then took an Imitrex because Excedrin was not helping. She took her blood pressure and noticed that her blood pressure was elevated. She has associated left hand tingling. The pain is in the left side of her chest. She has associated shortness of breath. She denies having any nausea or vomiting. She denies having any diaphoresis. She is followed by pain management for right sciatica and chronic back pain. Related to her elevated blood pressure she took an old prescription 5 mg of lisinopril and an extra atenolol 50 mg. At 11 PM. She denies any history of coronary artery disease. She had a stress test last 10 years ago. The patient does report having some right lower extremity pain related to a stress fracture in the right tibia. She has a walking boot in place. Otherwise on review of systems, the patient denies any recent fevers, cough, congestion, neck pain, abdominal pain, vomiting, diarrhea, urinary symptoms, or neurologic symptoms. PFSH Past Medical History Narrative Medical The patient's past medical history is significant for stress fracture right tibia, chronic back pain, hypertension, migraine headaches. Hx Anticoagulant Therapy: Yes Arthritis: Yes Asthma: No Autoimmune Disease: No Blood Disorders: No Anxiety: Yes Depression: Yes Heart Rhythm Problems: No Cancer: Yes (UTERINE CA ) Cardiovascular Problems: Yes (HTN ) High Cholesterol: No Chest Pain: No Congestive Heart Failure: No COPD: No Cerebrovascular Accident: No Diabetes: Yes (BORDERLINE) Diminished Hearing: No Endocrine: No Gastrointestinal Disorders: Yes GERD: Yes Glaucoma: No Genitourinary: Yes (urinary incontinence) Headaches: No Hepatitis: No Hiatal Hernia: No Hypertension: Yes Immune Disorder: No Kidney Stones: No Musculoskeletal: Yes Psychiatric: Yes Myocardial Infarction: No Renal Failure: No Seizures: No Sickle Cell Disease: No Sleep Apnea: No Thyroid Disease: No Ulcer: No ?: Not Menopausal: Yes Past Surgical History Narrative Surgical The patient's past surgical history is significant for a lap cholecystectomy, lumbar surgery, SI joint sx right side, appendectomy, hysterectomy due to cervical CA. Abdominal Surgery: Yes (LAP COLLIE, APPENTECTOMY) AICD: No Appendectomy: Yes Cardiac Surgery: No Ear Surgery: No Endocrine Surgery: No Eye Surgery: No Genitourinary Surgery: No Gynecologic Surgery: No Hysterectomy: Yes Joint Replacement: No Neurologic Surgery: Yes (L2-L5 FUSION) Oral Surgery: No Pacemaker: No Thoracic Surgery: No Other Surgery: Yes Social History Alcohol Use: No Tobacco Use: No Substance Use: No Allergies-Medications (Allergen,Severity, Reaction): Coded Allergies: No Known Allergies (Unverified , 03/11/17) Reported Meds & Prescriptions Reported Meds & Active Scripts Active Protonix (Pantoprazole Sodium) 20 Mg Tab 20 Mg PO BID Aspirin EC (Aspirin) 81 Mg Tabdr 81 Mg PO DAILY Reported Morphine IR (Morphine Sulfate) 30 Mg Tab 30 Mg PO Q8HR PRN Venlafaxine ER 24 HR (Venlafaxine HCl) 150 Mg Tab 150 Mg PO BID Sumatriptan (Sumatriptan Succinate) 100 Mg Tab 100 Mg PO ONCE PRN If a satisfactory response has not been obtained at 2 hours, a second dose may be administered Atenolol 50 Mg Tab 50 Mg PO DAILY Flexeril (Cyclobenzaprine HCl) 10 Mg Tab 10 Mg PO TID Morphine ER (Morphine Sulfate) 30 Mg Tab 30 Mg PO BID Clonazepam 1 Mg Tab 1 Mg PO TID Review of Systems Except as stated in HPI: all other systems reviewed are Neg General / Constitutional: No: Fever Eyes: No: Visual changes HENT: No: Headaches Cardiovascular: Positive: Chest Pain or Discomfort, Dyspnea on exertion Respiratory: Positive: Shortness of Breath Gastrointestinal: No: Abdominal Pain Genitourinary: No: Dysuria Musculoskeletal: No: Pain Skin: No Rash Neurologic: Positive: Headache, Paresthesia, No: Weakness, Focal Abnormalities , Change in Mentation, Slurred Speech, Sensory Disturbance Psychiatric: No: Depression Endocrine: No: Polydipsia Hematologic/Lymphatic: No: Easy Bruising Physical Exam Narrative General: The patient is a well-developed well-nourished female in no acute distress. Head and Neck exam: Head is normocephalic atraumatic. Eyes: EOMI, pupils are equal round and reactive to light. Nose: Midline septum with pink mucous membranes Mouth: Dentition unremarkable. Moist mucus membranes. Posterior oropharynx is not erythematous. No tonsillar hypertrophy. Uvula midline. Airway patent. Neck: No palpable lymphadenopathy. No nuchal rigidity. No thyromegaly. Cardiovascular: Regular rate and rhythm without murmurs, gallops, or rubs. No pulse deficit to the extremities and simultaneous auscultation and palpation of her radial artery. Lungs: Clear to auscultation bilaterally. No wheezes, rhonchi, or rales. Abdomen: Soft, without tenderness to palpation in all 4 quadrants of the abdomen. No guarding, rebound, or rigidity. Normal bowel sounds are audible. No tenderness on palpation of McBurney's point. Negative [place] sign. Extremities: No clubbing, cyanosis, or edema. 2+ pulses in all 4 extremities. The patient has a walking boot in place on the right leg related to a stress fracture. Back: No spinous process tenderness to palpation. No costovertebral angle tenderness to palpation. Neurologic Exam: Grossly nonfocal. Skin Exam: No rash noted. Intact skin that is warm and dry. Data Data Last Documented VS Vital Signs Date Time Temp Pulse Resp B/P Pulse Ox O2 Delivery O2 Flow Rate FiO2 03/11/17 01:59 121/77 03/11/17 01:59 75 18 100 Room Air Orders Electrocardiogram (03/11/17 01:49) B-Type Natriuretic Peptide (03/11/17 01:49) Ckmb (Isoenzyme) Profile (03/11/17 01:49) Complete Blood Count With Diff (03/11/17 01:49) Comprehensive Metabolic Panel (03/11/17 01:49) Magnesium (Mg) (03/11/17 01:49) Prothrombin Time / Inr (Pt) (03/11/17:49) Act Partial Throm Time (Ptt) (03/11/17:49) Troponin I (03/11/17:49) Lipase (03/11/17 01:49) Chest, Single Ap (03/11/17:49) Ecg Monitoring (03/11/17:49) Bilateral Bp Monitoring (03/11/17:49) Iv Access Insert/Monitor (03/11/17 01:49) Oximetry (03/11/17 01:49) Oxygen Administration (03/11/17 01:49) Aspirin Chew (Aspirin Chew) (03/11/17 02:00) Sodium Chloride 0.9% Flush (Ns Flush) (03/11/17 02:00) Nitroglycerin Sl (Nitrostat Sl) (03/11/17 02:00) Ct Brain W/O Iv Contrast(Rout) (03/11/17 02:26) Admit Order (Ed Use Only) (03/11/17 03:39) Labs Laboratory Tests Test 03/11/17 03/11/17 02:00 02:55 Prothrombin Time 10.6 SEC Prothromb Time International 1.0 RATIO Ratio Activated Partial 28.4 SEC Thromboplast Time Sodium Level 140 MEQ/L Potassium Level 3.9 MEQ/L Chloride Level 103 MEQ/L Carbon Dioxide Level 29.5 MEQ/L Anion Gap 8 MEQ/L Blood Urea Nitrogen 19 MG/DL Creatinine 0.99 MG/DL Estimat Glomerular Filtration 56 ML/MIN Rate Random Glucose 97 MG/DL Calcium Level 9.2 MG/DL Magnesium Level 1.9 MG/DL Total Bilirubin 0.2 MG/DL Aspartate Amino Transf 16 U/L (AST/SGOT) Alanine Aminotransferase 20 U/L (ALT/SGPT) Alkaline Phosphatase 109 U/L Total Creatine Kinase 49 U/L Troponin I 0.03 NG/ML B-Type Natriuretic Peptide 210 PG/ML Total Protein 7.7 GM/DL Albumin 3.6 GM/DL Lipase 100 U/L White Blood Count 8.1 TH/MM3 Red Blood Count 4.28 MIL/MM3 Hemoglobin 12.5 GM/DL Hematocrit 37.3 % Mean Corpuscular Volume 87.1 FL Mean Corpuscular Hemoglobin 29.3 PG Mean Corpuscular Hemoglobin 33.6 % Concent Red Cell Distribution Width 14.8 % Platelet Count 219 TH/MM3 Mean Platelet Volume 8.0 FL Neutrophils (%) (Auto) 58.2 % Lymphocytes (%) (Auto) 28.9 % Monocytes (%) (Auto) 7.7 % Eosinophils (%) (Auto) 4.4 % Basophils (%) (Auto) 0.8 % Neutrophils # (Auto) 4.7 TH/MM3 Lymphocytes # (Auto) 2.3 TH/MM3 Monocytes # (Auto) 0.6 TH/MM3 Eosinophils # (Auto) 0.4 TH/MM3 Basophils # (Auto) 0.1 TH/MM3 CBC Comment DIFF FINAL Differential Comment MDM Medical Decision Making Medical Screen Exam Complete: Yes Emergency Medical Condition: Yes Medical Record Reviewed: Yes Interpretation(s) Last Impressions Head CT 03/11/17225 Signed Impressions: Service Date/Time: Saturday, March 11, 2017 02:38 - CONCLUSION: Normal examination. Freddie Dolan MD Chest X-Ray 03/11/17 0149 Signed Impressions: Service Date/Time: Saturday, March 11, 2017 01:56 - CONCLUSION: No acute disease. Freddie Dolan MD Differential Diagnosis Acute coronary syndrome, versus pulmonary embolism, versus anxiety disorder, versus poorly controlled hypertension, versus pleurisy, versus musculoskeletal strain, versus pneumonia Narrative Course During the course of the patients emergency department visit, the patients history, examination, and differential diagnosis were reviewed with the patient. The patient had IV access obtained and blood work sent for analysis. The patient states on a cardiac rehabilitation program director with oximetry and blood pressure monitoring. An ECG was done on arrival. The patient's ECG reveals a sinus rhythm heart rate of 66, no acute ST segment elevation or depression, T waves are inverted in V1, QRS duration is 88 ms, QTC 375 ms. The patient was initially provided aspirin 162 mg by mouth 1. Nitroglycerin sublingual times one. The patients laboratory studies were reviewed and remarkable for a CBC that is unremarkable. CMP is remarkable for a BUN of 19, GFR 56, CPK 49, troponin I 0.03, BNP 210, lipase 100, PT 10.6, PTT 28.4 per Radiology studies were reviewed and remarkable for a CT scan of the brain that showed no acute abnormality. Chest x-ray showed no acute cardiopulmonary disease. The patients results were discussed with the patient, including the plan of care. I explained that further testing and/ or monitoring is indicated based on the patients history, examination, and/ or laboratory findings. Therefore, I recommended admission for additional evaluation. The patient expressed understanding and was agreeable with this plan. The patient was admitted to the hospital in stable condition and sent to a bed under the care of chest pain center. Diagnosis Primary Impression: Chest pain, rule out acute myocardial infarction Admitting Information Admitting Physician Requests: Observation Scripts Pantoprazole (Protonix)20 Mg Tab20 Mg PO BID #60 TAB Ref 0 Prov:Jone Ramírez DO 03/11/[address] (Aspirin EC)81 Mg Tabdr81 Mg PO DAILY #30 TAB Ref 0 Prov:Jone Ramírez DO 03/11/17 Mitzy Betancur MD Mar 11, 2017 01:39
[2017-03-11 01:59] VITALS: BP 121/77
[2017-03-11] MEDS ORDERED: ASPIRIN 81 MG CHEW TAB PO ONE (02:00)
[2017-03-11] MEDS ORDERED: NITROGLYCERIN 0.4 MG SL 25 TABS/BTL SL ONE (02:00)
[2017-03-11] MEDS ORDERED: SODIUM CHLORIDE 0.9% FLUSH 10 ML FLUSH IVF PRN (02:00)
--- NOTE | 2017-03-11 02:21 | RADRPT ---
EXAM DATE/TIME: 03/11/2017 01:56 [facility] COMPARISON: No previous studies available for comparison. INDICATIONS : Chest pain. MEDICAL HISTORY : Hypertension. SURGICAL HISTORY : None. ENCOUNTER: Initial ACUITY: 1 day PAIN SCORE: 0/10 LOCATION: Bilateral chest FINDINGS: A single view of the chest demonstrates the lungs to be symmetrically aerated without evidence of mas s, infiltrate or effusion. The cardiomediastinal contours are unremarkable. Osseous structures are intact. ACDF hardware overlies the cervical spine. Nathan and screws fixation of the upper lumbar spine. CONCLUSION: No acute disease. Freddie Dolan MD on March 11, 2017 at 2:20 Board Certified Radiologist. This report was verified electronically.
[2017-03-11 02:27] LABS: APTT (PATIENT) 28.4 SEC (24.3-30.1); PROTHROMBIN TIME - PATIENT 10.6 SEC (9.8-11.6)
[2017-03-11 02:39] LABS: ALT (GPT) 20 U/L (10-53); ANION GAP 8 MEQ/L (5-15); AST (GOT) 16 U/L (15-37); BICARBONATE 29.5 MEQ/L (21.0-32.0); BLOOD UREA NITROGEN 19 MG/DL (7-18); CHLORIDE 103 MEQ/L (98-107); GLOMERULAR FILTRATION RATE 56 ML/MIN (>89); MAGNESIUM 1.9 MG/DL (1.5-2.5); POTASSIUM 3.9 MEQ/L (3.5-5.1); SODIUM (NA) 140 MEQ/L (136-145)
[2017-03-11 02:43] LABS: ALKALINE PHOSPHATASE 109 U/L (45-117); TOTAL BILIRUBIN ADULT 0.2 MG/DL (0.2-1.0)
[2017-03-11 02:44] LABS: CREATINE KINASE 49 U/L (26-192)
--- NOTE | 2017-03-11 03:04 | RADRPT ---
EXAM DATE/TIME: 03/11/2017 02:38 [place] COMPARISON: CT BRAIN W/O CONTRAST, February 25, 2017, 5:26. INDICATIONS : Cephalgia. RADIATION DOSE: 31.89 CTDIvol (mGy) MEDICAL HISTORY : Hypertension. Gastroesophageal reflux disease. Uterine cancer. SURGICAL HISTORY : Hysterectomy. Appendectomy. ENCOUNTER: Initial ACUITY: 1 day PAIN SCALE: 7/10 LOCATION: cranial TECHNIQUE: Multiple contiguous axial images were obtained of the head. Using automated exposure control and adj ustment of the mA and/or kV according to patient size, radiation dose was kept as low as reasonably a chievable to obtain optimal diagnostic quality images. DICOM format image data is available electro nically for review and comparison. FINDINGS: CEREBRUM: The ventricles are normal for age. No evidence of midline shift, mass lesion, hemorrhage or acute in farction. No extra-axial fluid collections are seen. POSTERIOR FOSSA: The cerebellum and brainstem are intact. The 4th ventricle is midline. The cerebellopontine angle i s unremarkable. EXTRACRANIAL: The visualized portion of the orbits is intact. SKULL: The calvaria is intact. No evidence of skull fracture. CONCLUSION: Normal examination. Freddie Dolan MD on March 11, 2017 at 3:02 Board Certified Radiologist. This report was verified electronically.
[2017-03-11 03:28] LABS: AUTOMATED NEUTROPHIL # 4.7 TH/MM3 (1.8-7.7); BASOPHIL # 0.1 TH/MM3 (0-0.2); BASOPHIL % 0.8 % (0.0-2.0); EOSINOPHIL # 0.4 TH/MM3 (0-0.4); EOSINOPHIL % 4.4 % (0.0-4.0); HEMATOCRIT 37.3 % (35.0-46.0); HEMO FLAGS DIFF FINAL; LYMPH % 28.9 % (9.0-44.0); LYMPHOCYTE # 2.3 TH/MM3 (1.0-4.8); MEAN CELL VOLUME 87.1 FL (80.0-100.0); MEAN CORPUSCULAR HEMOGLOBIN 29.3 PG (27.0-34.0); MEAN CORPUSCULAR HGB CONC 33.6 % (32.0-36.0); MONO % 7.7 % (0.0-8.0); NEUT % 58.2 % (16.0-70.0); PLATELET COUNT 219 TH/MM3 (150-450); RED BLOOD COUNT 4.28 MIL/MM3 (4.00-5.30); RED CELL DISTRIBUTION WIDTH 14.8 % (11.6-17.2); WHITE BLOOD COUNT 8.1 TH/MM3 (4.0-11.0)
[2017-03-11 04:40] VITALS: O2SAT 99
[2017-03-11] MEDS ORDERED: LORazepam 2 MG/ML VIAL IV PUSH ONE (04:45)
[2017-03-11] MEDS ORDERED: SODIUM CHLORIDE 0.9% FLUSH 10 ML FLUSH IV FLUSH PRN (04:45)
[2017-03-11 05:02] VITALS: BP 155/89; PULSE 59; RESP 16; O2SAT 100
[2017-03-11 06:39] VITALS: PULSE 80
[2017-03-11 08:05] VITALS: BP 131/85; PULSE 64; RESP 12; TEMP 98.7; O2SAT 96
[2017-03-11] MEDS ORDERED: HEPARIN SODIUM - IV 10,000 UNITS/10 ML VIAL IV ONE (08:15)
[2017-03-11] MEDS ORDERED: ATORVASTATIN 80 MG TAB PO ONE (08:15)
[2017-03-11] MEDS ORDERED: HEPARIN-D5W INJ 250 ML IV SCH (08:15)
--- NOTE | 2017-03-11 08:23 | EKG ---
Date Performed: 03/11/2017 Time Performed: 04:51:32 PTAGE: 66 years EKG: SINUS BRADYCARDIA WITH FIRST DEGREE AV BLOCK ABNORMAL ECG Since PREVIOUS TRACING , no significant change noted PREVIOUS TRACIN10/29/2005 23.09 DOCTOR: Mary Florez Interpretating Date/Time 03/11/2017 08:22:23
--- NOTE | 2017-03-11 08:24 | EKG ---
Date Performed: 03/11/2017 Time Performed: 01:51:42 PTAGE: 66 years EKG: Sinus rhythm NORMAL ECG Since previous tracing, no significant change noted NO PREVIOUS TRACING DOCTOR: Mary Florez Interpretating Date/Time 03/11/2017 08:23:10
[2017-03-11] MEDS ORDERED: VENLAFAXINE HCL XR 75 MG CAP PO SCH (09:00)
[2017-03-11] MEDS ORDERED: NITROGLYCERIN 2% OINT 1 GM PACKET TOPICAL SCH ×2 (09:00→14:00)
[2017-03-11] MEDS ORDERED: SODIUM CHLORIDE 0.9% FLUSH 10 ML FLUSH IV FLUSH SCH (09:00)
[2017-03-11] MEDS ORDERED: METOPROLOL TARTRATE 25 MG TAB PO SCH (09:00)
[2017-03-11] MEDS ORDERED: clonazePAM 1 MG TAB PO SCH (09:00)
--- NOTE | 2017-03-11 09:27 | HHI.HP ---
[facility] Non-Staff Admission Diagnosis cp r/o DC Diagnoses: Chief Complaint: Chest pain Travel History International Travel<30 Days: No Contact w/Intl Traveler <30 Da: No Traveled to Known Affected Are: No History of Present Illness Written by Mina Leija, acting as scribe for Dr. Ramírez on 03/11/17 at 09:27. This note was transcribed by [email or web address] Quezada. I, Dr. Vipul Ramírez personally performed the history, physical exam, and medical decision making; and confirmed the accuracy of the information in the transcribed note. Authenticated by Dr. Vipul Ramírez on 03/11/17 at 23:46. 66-year-old female with past medical history of chronic pain, anxiety/depression , HTN, migraines who presented for chest pain. Patient states that last night she was sitting watching a movie with her and developed midsternal chest pain. She describes the pain as an elephant sitting on her chest. She also had associated left hand and arm tingling. She states the pain was initially 7/10 in severity, and has been constant since that time, but is down to 3/10 and currently located under her left breast. She had associated "indigestion", but no vomiting, sweating, or shortness of breath. The patient states that yesterday around 6 PM she began having headache and was been noted to have slightly elevated blood pressure 140/110 at her pain management doctor. She states she continued to feel poorly last night and her blood pressure was higher at 160/110. She did take an extra atenolol and an old lisinopril due to high blood pressure at home. She denies any prior history of heart disease, diabetes, tobacco use. The patient used to take a baby aspirin every night, but has been out of aspirin for the last week. Review of Systems Except as stated in HPI: all other systems reviewed are Neg Past Family Social History Past Medical History Chronic back and hip pain Anxiety/depression Hypertension Migraines Past Surgical History Cholecystectomy Appendectomy Lower back surgery Hysterectomy due to cervical cancer Reported Medications Reported Meds & Active Scripts Active Reported Morphine IR (Morphine Sulfate) 30 Mg Tab 30 Mg PO Q8HR PRN Venlafaxine ER 24 HR (Venlafaxine HCl) 150 Mg Tab 150 Mg PO BID Sumatriptan (Sumatriptan Succinate) 100 Mg Tab 100 Mg PO ONCE PRN If a satisfactory response has not been obtained at 2 hours, a second dose may be administered Atenolol 50 Mg Tab 50 Mg PO DAILY Flexeril (Cyclobenzaprine HCl) 10 Mg Tab 10 Mg PO TID Morphine ER (Morphine Sulfate) 30 Mg Tab 30 Mg PO BID Clonazepam 1 Mg Tab 1 Mg PO TID Allergies: Coded Allergies: No Known Allergies (Unverified , 03/11/17) Active Ordered Medications Current Medications Medications (Trade) Dose Ordered Sig/Fior Route Start Time Stop Time Status Last Admin (NS Flush) 2 ml UNSCH PRN IVF 03/11/17 02:00 (NS Flush) 2 ml UNSCH PRN IV FLUSH 03/11/17 04:45 (NS Flush) 2 ml BID IV FLUSH 03/11/17 09:00 03/11/17 09:52 (Pneumovax-23 Inj) 25 mcg ONCE ONCE IM 03/12/17 10:00 03/12/17 10:01 (Lopressor) 25 mg Q12HR PO 03/11/17 09:00 03/11/17 09:52 (Heparin Inj) 5,000 units UNSCH PRN IV 03/11/17 14:15 Heparin Sodium (Porcine) 2500 units 2,500 units UNSCH PRN IV 03/11/17 14:15 (Heparin-D5W Inj) 250 ml @ 0 mls/hr TITRATE IV 03/11/17 08:15 (KlonoPIN) 1 mg TID PO 03/11/17 09:00 03/11/17 09:52 (Nitroglycerin 2% Oint) 1 inch Q8H TOPICAL 03/11/17 09:00 03/11/17 09:52 (Fioricet 325-50-40) 1 tab Q8H PRN PO 03/11/17 17:00 Family History Cancer in the patient's paternal grandfather, maternal aunt, and father with colon cancer Maternal grandmother had heart attack 3 Social History Denies any alcohol, tobacco, or drug use Retired RN Physical Exam Vital Signs Vital Signs Date Time Temp Pulse Resp B/P Pulse Ox O2 Delivery O2 Flow Rate FiO2 03/11/17 08:05 98.7 64 12 131/85 96 03/11/17 06:39 80 03/11/17 06:39 80 03/11/17 05:02 59 16 155/89 100 Room Air 03/11/17 04:40 99 21 03/11/17 01:59 121/77 03/11/17 01:59 75 18 100 Room Air 03/11/17 01:32 75 18 185/101 100 Physical Exam GENERAL: Well-developed well-nourished. In no acute distress. SKIN: Warm and dry. No lesions noted. HEENT: Normocephalic. Pupils equal and round. Mucous membranes pink and moist. CARDIOVASCULAR: Regular rate and rhythm. No murmur appreciated. RESPIRATORY: No accessory muscle use. Clear to auscultation. Breath sounds equal bilaterally. GASTROINTESTINAL: Abdomen soft, non-tender, nondistended. Bowel sounds x4. MUSCULOSKELETAL: No obvious deformities. No clubbing or cyanosis. No edema. NEUROLOGICAL: Awake and alert. No focal neurological deficits. Moves upper and lower extremities spontaneously. Normal speech. PSYCHIATRIC: Appropriate mood and affect; insight and judgment normal. Laboratory Laboratory Tests Test 03/11/17 03/11/17 03/11/17 03/11/17 02:00 02:55 05:00 08:00 Prothrombin Time 10.6 Prothromb Time International 1.0 Ratio Activated Partial 28.4 Thromboplast Time Sodium Level 140 Potassium Level 3.9 Chloride Level 103 Carbon Dioxide Level 29.5 Anion Gap 8 Blood Urea Nitrogen 19 Creatinine 0.99 Estimat Glomerular Filtration 56 Rate Random Glucose 97 Calcium Level 9.2 Magnesium Level 1.9 Total Bilirubin 0.2 Aspartate Amino Transf 16 (AST/SGOT) Alanine Aminotransferase 20 (ALT/SGPT) Alkaline Phosphatase 109 Total Creatine Kinase 49 95 63 Troponin I 0.03 0.53 0.61 B-Type Natriuretic Peptide 210 Total Protein 7.7 Albumin 3.6 Lipase 100 White Blood Count 8.1 Red Blood Count 4.28 Hemoglobin 12.5 Hematocrit 37.3 Mean Corpuscular Volume 87.1 Mean Corpuscular Hemoglobin 29.3 Mean Corpuscular Hemoglobin 33.6 Concent Red Cell Distribution Width 14.8 Platelet Count 219 Mean Platelet Volume 8.0 Neutrophils (%) (Auto) 58.2 Lymphocytes (%) (Auto) 28.9 Monocytes (%) (Auto) 7.7 Eosinophils (%) (Auto) 4.4 Basophils (%) (Auto) 0.8 Neutrophils # (Auto) 4.7 Lymphocytes # (Auto) 2.3 Monocytes # (Auto) 0.6 Eosinophils # (Auto) 0.4 Basophils # (Auto) 0.1 CBC Comment DIFF FINAL Differential Comment Result Diagram: 03/11/17 0255 03/11/17 0200 Imaging Last Impressions Head CT 03/11/17225 Signed Impressions: Service Date/Time: Saturday, March 11, 2017 02:38 - CONCLUSION: Normal examination. Freddie Dolan MD Chest X-Ray 03/11/17 0149 Signed Impressions: Service Date/Time: Saturday, March 11, 2017 01:56 - CONCLUSION: No acute disease. Freddie Dolan MD Assessment and Plan Assessment and Plan 66-year-old female with past medical history of chronic pain, anxiety/depression , HTN, migraines who presented for chest pain NSTEMI: Chest pain sounds fairly typical. Troponins 0.03, 0.53, 0.61. EKG reviewed with no definite ischemic changes. Chest x-ray clear. -Aspirin, beta jairo, Lipitor 80mg. -Heparin GTT -Cardiology consult -Nitropaste -Lipid profile Headache with history of migraines: Head CT unremarkable. Possibly exacerbated by nitroglycerin. -Avoid Imitrex due to vasoconstriction -Trial of Fioricet Hypertension: Accelerated upon admission, currently controlled. Change atenolol to metoprolol. Monitor and adjust medications as needed. Other chronic medical conditions including anxiety, depression, chronic back pain: Stable at this time and will continue home medications as indicated DVT prophylaxis: On heparin Patient underwent cardiac cath today. No significant CAD found and thus cardiology cleared for discharge. CORONARY ANGIOGRAPHY 1. Left main coronary angiographically normal. 2. Left anterior descending coronary is angiographically normal, large diagonal branch, very small distal LAD itself. 3. Circumflex gives rise to an obtuse marginal branch, angiographically normal. 4. Right coronary is an angiographically normal dominant vessel. CONCLUSION 1. Angiographically normal coronary arteries. We will discharge patient home. Discharge patient to home Condition on discharge: Improved Heart healthy Diet as tolerated Ad Linh activity Rx written: Aspirin 81mg Qday Protonix 20mg BID. Follow-up with primary care physician in one week with lipid profile. Discussed Condition With Patient, Mina Carlin Mar 11, 2017 09:27 Jone Ramírez DO Mar 11, 2017 23:47
[2017-03-11] MEDS ORDERED: ACETAMIN 325 MG/BUTALBITAL 50 MG/CAFFEINE 40 MG TAB PO ONE (09:30)
[2017-03-11 09:59] LABS: HEMATOCRIT 37.8 % (35.0-46.0); MEAN CELL VOLUME 87.3 FL (80.0-100.0); MEAN CORPUSCULAR HEMOGLOBIN 29.1 PG (27.0-34.0); MEAN CORPUSCULAR HGB CONC 33.3 % (32.0-36.0); PLATELET COUNT 210 TH/MM3 (150-450); RED BLOOD COUNT 4.32 MIL/MM3 (4.00-5.30); RED CELL DISTRIBUTION WIDTH 14.9 % (11.6-17.2); REVIEW FLAG FINAL; WHITE BLOOD COUNT 8.3 TH/MM3 (4.0-11.0)
[2017-03-11] MEDS ORDERED: MORPHINE SULFATE 30 MG TAB PO PRN (10:00)
[2017-03-11 10:15] LABS: APTT (PATIENT) 28.9 SEC (24.3-30.1); PROTHROMBIN TIME - PATIENT 10.7 SEC (9.8-11.6)
[2017-03-11] MEDS ORDERED: HEPARIN-NS/PF INJ 500 ML ONE ×2 (11:46→11:50)
[2017-03-11] MEDS ORDERED: MIDAZOLAM HCL 2 MG/2 ML VIAL ONE (11:51)
[2017-03-11] MEDS ORDERED: HEPARIN SODIUM - IV 10,000 UNITS/10 ML VIAL ONE (11:51)
--- NOTE | 2017-03-11 12:25 | CATHPROC ---
[employer] HIS Report Study Information Study Number Admission Scheduled Start Study Start [id number] Mar 11 2017 8:58AM 03/11/2017 Mar 11 2017 11:32AM [place] Service Cardiac Catheterization Admit Source Facility Department Emergency department [facility] - Spray Painter Helper Physician and Clinical Staff Initial Scooter Pickett Welding Pantograph Machine Operator Precious Ashford,BRENDA Welding Pantograph Machine Operator Sosa Rachel BSRN Other cathlab, cathlab Recorder Ron Vance RCIS(BS) Scrub Kat Sow,ADMINISTRATIVE SERVICES SPECIALIST TECH2 Procedures Performed Procedure Location (Site) Vessel Name Coronary Angiograms LCA Left Coronary Coronary Angiograms RCA Right Coronary L Heart Cath Equipment Time Gear Room Keeper Description Size Mfg Part Number Used/Scraped TRANSDUCER, TRDimensions IT Infrastructure SolutionsAVE [id number] 11:35 ORDONEZ ASHFORD * Used W/STOCKCOCK *[id number] *[id number] *[id number] 11:35 [employer]Calls INDUSTRIES PACK, CCL CUSTOM * Used *[id number] 11:35 [email or web address] SUPPORT, ARTERIAL ADULT [id number] Used [id number] 11:35 [employer] PACER PEN, SKIN DUAL W/ RULER * Used *[id number] 12:21 [employer]lio SAFEGUARD 24CM [id number] Used SHEATH, FR6 RADIAL PRELUDE 11:35 [employer] FR 6 [id number] Used EASE 11CM [id number] 11:35 [employer] WIRE, EXCHANGE 260CM 3MMJ 260CM Used *[id number] 11:35 NYCOMED OMNIPAQUE, 350 MG, 150ML 150ML [id number] Used [id number] 11:35 [employer]UMMOND MEDICAL BLANKET,WARM AIR CCL * Used *[id number] History: Current Medications Medication Dosage/Unit Route Frequency Last Date/Time Taken ASA Beta Samina Statins (any) History: Allergies Allergy Reaction No Known Allergies History: Risk Factors Family History of Hypertension Dyslipidemia Previous ID Previous Heart Failure Premature CAD Yes No No No No Prior Valve Prior PCI Prior CABG Surgery No No No Cerebrovascular Peripheral Artery Chronic Lung On Dialysis Diabetes Disease Disease Disease No No No No No History: Symptoms/Diagnosis Selection Items Chest pain History: Stress Tests Stress or Imaging Studies Performed No History: Other Disease Selection Items HTN History: Other Current Smoker No Labs Hgb (g/dl) Hct (%) WBC (l/cumm) Platelets (thousands) 11.60-17.00 35.00-51.00 4.00-11.00 150.00-450.00 12.6 37.8 8.3 210 Glucose (mg/dl) BUN (mg/dl) Creatinine (mg/dl) BUN:Creatinine (1:x) 74.00-106.00 7.00-18.00 0.50-1.30 10.00-20.00 72 19 0.9 21.1 Na (meq/l) K (meq/l) 136.00-145.00 3.50-5.10 140 3.9 INR (PTT:PT) 0.90-1.10 1 Troponin I (ng/ml) CPK-MB (ng/ML) 0.02-0.05 0.50-3.60 0.61 Not Drawn Medication Medication Total Dose (Bolus/Oral) Medication Total Dosage/Unit 1% XYLOCAINE 3 mL FENTANYL 100 mcg NTG (IC) 200 mcg VERSED 4 mg Medications (Bolus/Oral) Medication Time Given Dosage/Unit Administered By Reason VERSED 03/11/2017 12:06:59 PM 2 mg Mc Ashfordantha 2 mg VERSED given in lab by Precious Ashford RN in Right Forearm via Peripheral IV. Ordered by Scooter Ren[place]. FENTANYL 03/11/2017 12:07:09 PM 50 mcg Eddy Ashforda 50 mcg FENTANYL given in lab by Precious Ashford RN in Right Forearm via Peripheral IV. Ordered by Scooter Lora. FENTANYL 03/11/2017 12:11:54 PM 50 mcg Eddy Ashforda 50 mcg FENTANYL given in lab by Precious Ashford RN in Right Forearm via Peripheral IV. Ordered by Scooter Lora. VERSED 03/11/2017 12:12:22 PM 2 mg Dejon, Precious 2 mg VERSED given in lab by Precious Ashford RN in Right Forearm via Peripheral IV. Ordered by Scooter [place]. 1% XYLOCAINE 03/11/2017 12:12:23 PM 3 mL Scooter Lora 3 mL 1% XYLOCAINE given in lab by Scooter Lora in Right Radial via Subcutaneous. Ordered by Scooter Lora. NTG (IC) 03/11/2017 12:13:42 PM 200 mcg Scooter Lora 200 mcg NTG (IC) given in lab by Scooter Lora in Right Radial via Intra-arterial. Medication (Drip) Medication Time Given Dosage/Unit Concentration/Unit Diluent (ml) Solution IV Solutions 03/11/2017 11:36:01 AM 0 mL (IV) 500 NaCl .9 Patient arrived on IV Solutions given by cathlabflynn in Right Forearm via Peripheral IV. Pump/Dr ip Flow = 20 ml/hr using NaCl .9. Ordered by Scooter Lora. Initial Case Assessment Cardiovascular HR Rhythm NIBP Chest Pain 64 sinus 136/86 0 Edema Present Skin color Skin None Normal Warm Dry Circulatory - Right Pulses Dorsalis Pedis Femoral Radial 2 2 2 Scale (0,1,2,3,4,d) Scale (0,1,2,3,4,d) Neurological State Oriented to time-place- Alert Moves all extremities person Respiration - General Respiration Rate SpO2 (%) (B/min) 15 95 Final Case Assessment Cardiovascular HR Rhythm NIBP Chest Pain 57 sinus 119/78 0 Edema Present Skin color Skin None Normal Warm Dry Circulatory - Right Pulses Dorsalis Pedis Femoral Radial 2 2 2 Scale (0,1,2,3,4,d) Scale (0,1,2,3,4,d) Neurological State Oriented to time-place- Alert Moves all extremities person Respiration - General Respiration Rate SpO2 (%) (B/min) 15 95 Chronological Log Time Study Chronological Log 11:35:51 Patient arrived via Bed. Heparin drip DCed per MD upon case picker. 11:35:52 Patient Name, D.O.B, / Armband Verified By R.N. 11:35:52 Consent signed by the physician and the patient and verified by the Spray Pain[employer] staff. 11:35:53 Pre-op and post- op instructions given; patient acknowledges understanding of instructions. 11:35:53 Verbal Stimulation=2 Physical Stimulation=2 Airway=2 Respiration=2 TOTAL=8. (0=absent, 1=li mited, 2=present) 11:35:54 Presedation assessment performed by Spray Painter Helper RN. 11:35:55 Allens test performed on the right radial and ulnar artery. 11:35:56 Immediate Presedation assesment performed by physician. 11:35:56 Patient has been NPO for More than 6Hrs. 11:35:57 Skin Breakdown- none per patient 11:35:58 Patient Warmer Placed on the Table. 11:35:58 Abelino Prominences Protected 11:36:00 A # 20 IV was noted in the Forearm (right). Grade = 0 Patient arrived on IV Solutions given by cathlab, cathlab in Right Forearm via Peripheral IV. P ump/Drip Flow = 20 ml/hr 11:36:01 using NaCl .9. Ordered by Scooter Lora. 11:36:01 History and physical on the chart or being dictated. 11:36:03 Allens test performed on the right radial and ulnar artery. POSITIVE. Assessment: Initial Case, HR=64 BPM, Rhythm=sinus, HUCF=903/86 mmhg, Chest Pain=0, Edema=None, Color=Normal, Skin = Warm, Dry 11:43:59 Right Pulses: Saqib Ped=2, Femoral=2, Radial=2 Neurological: State=Alert, Ox3, BUSBY Respiration: Resp=15 B/min, SpO2=95 % Vitals capture started with the following parameters, Patient=Adult, Interval=5 min, Initial Pr tciqcx=321 mmHg, 11:44:16 Deflation Rate=5 mmHg Vitals capture started with the following parameters, Patient=Adult, Interval=5 min, Initial Pr lsduyz=623 mmHg, 11:45:04 Deflation Rate=5 mmHg 11:45:16 Reference ECG taken 11:45:46 HR=66 bpm, RYXV=388/86 mmhg, SpO2=97.0 %, Resp=12 B/min, Pain=0, Jas=10, Patel=2 11:47:41 HR=64 bpm, EVFM=643/87 mmhg, SpO2=96.0 %, Resp=8 B/min, Pain=0, Jas=10, Patel=2 11:49:41 HR=69 bpm, JDZZ=255/89 mmhg, SpO2=96.0 %, Resp=11 B/min, Pain=0, Jas=10, Patel=2 11:51:22 MD paged 11:51:42 HR=63 bpm, XEFE=418/85 mmhg, SpO2=97.0 %, Resp=19 B/min, Pain=0, Jas=10, Patel=2 11:53:43 HR=66 bpm, GTKX=514/85 mmhg, SpO2=97.0 %, Resp=12 B/min, Pain=0, Jas=10, Patel=2 11:53:59 Right Radial and groin(s) prepped with 2% chlorhexidine, and with a 3 min. waiting time. 11:55:21 Pressure channel 1 zeroed. 11:55:44 HR=66 bpm, WCSO=361/87 mmhg, SpO2=97.0 %, Resp=12 B/min, Pain=0, Jas=10, Patel=2 11:57:43 HR=65 bpm, CVLT=410/84 mmhg, SpO2=90.0 %, Resp=10 B/min, Pain=0, Jas=10, Patel=2 11:59:46 HR=65 bpm, HHJI=803/83 mmhg, SpO2=91.0 %, Resp=9 B/min, Pain=0, Jas=10, Patel=2 12:01:42 HR=67 bpm, BUTK=329/81 mmhg, SpO2=91.0 %, Resp=15 B/min, Pain=0, Jas=10, Patel=2 12:02:59 MD notified again 12:03:01 MD responded 12:03:43 HR=68 bpm, HKFR=280/83 mmhg, SpO2=93.0 %, Resp=11 B/min, Pain=0, Jas=10, Patel=2 12:05:42 HR=65 bpm, WUWK=872/82 mmhg, SpO2=91.0 %, Resp=16 B/min, Pain=0, Jas=10, Patel=2 12:06:38 MD arrived. 12:06:46 Contrast Scanned 12:06:46 Immediate Presedation assesment performed by physician. 12:06:59 2 mg VERSED given in lab by Precious Ashford, RN in Right Forearm via Peripheral IV. Order ed by Scooter Lora. 50 mcg FENTANYL given in lab by Precious Ashford RN in Right Forearm via Peripheral IV. Order ed by Guido, 12:07:09 Scooter. 12:07:43 HR=63 bpm, YIAL=365/84 mmhg, SpO2=92.0 %, Resp=11 B/min, Pain=0, Jas=10, Patel=2 12:09:42 HR=63 bpm, MSIB=442/85 mmhg, SpO2=96.0 %, Resp=12 B/min, Pain=0, Jas=10, Patel=2 12:11:13 Verbal Stimulation=2 Physical Stimulation=2 Airway=2 Respiration=2 TOTAL=8. (0=absent, 1=li mited, 2=present) 12:11:45 HR=63 bpm, FIWC=858/83 mmhg, SpO2=92.0 %, Resp=12 B/min, Pain=0, Jas=10, Patel=2 50 mcg FENTANYL given in lab by Precious Ashford, BRENDA in Right Forearm via Peripheral IV. Order ed by Guido 12:11:54 Scooter. Time Out. Correct patient, correct procedure,correct physician, ,power injector not loaded with contrast with surgical 12:12:03 team present. Time Out Concurred by MD, individual staff and COOK CASHIER FOOD PREP in procedure 12:12:08 Case Start 12:12:10 Verbal Stimulation=2 Physical Stimulation=2 Airway=2 Respiration=2 TOTAL=8. (0=absent, 1=li mited, 2=present) 12:12:22 2 mg VERSED given in lab by Precious Ashford, BRENDA in Right Forearm via Peripheral IV. Order ed by Scooter Lora. 12:12:23 3 mL 1% XYLOCAINE given in lab by Scooter Lora in Right Radial via Subcutaneous. Ordered by Scooter Lora. 12:13:01 Access site was Right Radial Artery. A SHEATH, FR6 RADIAL PRELUDE EASE 11CM FR 6 was advanced into the Radial (right) using the Perc utaneous 12:13:08 technique. 12:13:42 200 mcg NTG (IC) given in lab by Scooter Lora in Right Radial via Intra-arterial. 12:13:45 HR=64 bpm, ZILV=659/73 mmhg, SpO2=95.0 %, Resp=10 B/min, Pain=0, Jas=10, Patel=2 12:14:52 In the Radial (right) the SHEATH, FR6 RADIAL PRELUDE EASE 11CM FR [address] by Scooter Lora. A JR 5.0 INFINITI CATHETER FR 6 was advanced over a wire. OMNIPAQUE, 350 MG, 150ML 150ML was us ed for 12:15:01 injections. Recorded Pressure: LV, HR=?, Condition=Condition 1 12:15:10 (Left Ventricle) LV ?/?/? Recorded Pressure: LV, HR=?, Condition=Condition 1 12:15:30 (Left Ventricle) LV ?/?/? 12:15:44 HR=64 bpm, RXAE=787/83 mmhg, SpO2=94.0 %, Resp=9 B/min, Pain=0, Jas=10, Patel=2 12:15:44 The RCA was injected and visualized at various angles. OMNIPAQUE, 350 MG, 150ML 150ML used . Recorded Pressure: Ao, HR=67, Condition=Condition 1 12:15:57 (Aorta) Ao 126/76/98 After removing the current catheter a JL 3.5 INFINITI CATHETER FR 6 was advanced over a WIRE, E XCHANGE 260CM 12:16:15 3MMJ 260CM. 12:17:45 HR=65 bpm, SDKN=280/77 mmhg, SpO2=94.0 %, Resp=8 B/min, Pain=0, Jas=10, Patel=2 12:18:11 The LCA was injected and visualized at various angles. OMNIPAQUE, 350 MG, 150ML 150ML used . 12:19:14 Catheter was removed 12:19:33 Case End Assessment: Final Case, HR=57 BPM, Rhythm=sinus, MTAW=623/78 mmhg, Chest Pain=0, Edema=None, Color=Normal, Skin = Warm, Dry 12:19:38 Right Pulses: Saqib Ped=2, Femoral=2, Radial=2 Neurological: State=Alert, Ox3, BUSBY Respiration: Resp=15 B/min, SpO2=95 % 12:19:46 HR=58 bpm, VMJB=365/78 mmhg, SpO2=93.0 %, Resp=7 B/min, Pain=0, Jas=10, Patel=2 12:20:11 Catheter(s) removed without difficulty 12:20:13 Radial Compression Device Used. 15 mLs of air placed in SAFEGUARD 24CM. Affected hand 93 % O2 saturation. 12:20:28 No case complications noted. 12:20:29 Cine recording checked. 12:20:30 Bedside Report will be given. 12:20:32 Contrast Scanned 12:20:34 Verbal Stimulation=2 Physical Stimulation=2 Airway=2 Respiration=2 TOTAL=8. (0=absent, 1=l imited, 2=present) 12:20:49 A Left Heart Cath was performed. 12:21:47 HR=62 bpm, AICM=716/71 mmhg, SpO2=93.0 %, Resp=18 B/min, Pain=0, Jas=10, Patel=2 12:23:45 HR=59 bpm, UDKB=736/78 mmhg, SpO2=89.0 %, Resp=8 B/min, Pain=0, Jas=10, Patel=2 12:24:50 Vitals capture stopped. 12:24:51 [facility] - Contrast Media Used In Study Contrast Total Opened (mL) Total Used (mL) Total Wasted (mL) Omnipaque 40 40 0 End Study - Maximum Contrast Load Max Contrast Load (mL) 444.4 End Study - Radiation Exposure Fluoro Time (minutes) 1.4 End Study - Patient Disposition Complications Transferred To Interventional Outcome No Spray Painter Helper Holding No attempt made
[2017-03-11] MEDS ORDERED: MISC INFORMATION XX ONE (13:00)
[2017-03-11] MEDS ORDERED: ASPI81TA11 PO (13:03)
[2017-03-11] MEDS ORDERED: PANT20 PO (13:03)
[2017-03-11] MEDS ORDERED: ACETAMINOPHEN 500 MG CPLT PO PRN (14:00)
[2017-03-11] MEDS ORDERED: ACETAMINOPHEN 325 MG TAB PO ONE (14:00)
[2017-03-11] MEDS ORDERED: HEPARIN SODIUM - IV 10,000 UNITS/10 ML VIAL IV PRN ×2 (14:15)
--- NOTE | 2017-03-11 16:46 | EKG ---
Date Performed: 03/11/2017 Time Performed: 08:00:45 PTAGE: 66 years EKG: SINUS BRADYCARDIA WITH FIRST DEGREE AV BLOCK ABNORMAL ECG Since PREVIOUS TRACING , no significant change noted PREVIOUS TRACIN03/11/2017 04.51 DOCTOR: Mary Florez Interpretating Date/Time 03/11/2017 16:44:37
[2017-03-11] MEDS ORDERED: ACETAMIN 325 MG/BUTALBITAL 50 MG/CAFFEINE 40 MG TAB PO PRN (17:00)
--- NOTE | 2017-03-11 17:28 | MB ---
cc: ANGELA YUSUF DATE OF CONSULTATION 03/11/2017 INDICATION Ewe-ML-sptqveafe SD. HISTORY OF PRESENT ILLNESS A 66-year-old female without prior history of known heart disease who began experiencing chest pain yesterday afternoon at her doctor's office. Apparently she has a history of some chronic back pain issue, was seen at her pain management doctor's office when she developed this substernal chest pain. She had some associated shortness of breath. Denies any nausea but did have some diaphoresis. She was sent over to the emergency department. There the initial electrocardiogram was unremarkable. She did have first troponin negative but ruled in on second and third troponin for gfb-ME-aigyyxqnr SD. She currently denies any active chest pain. PAST MEDICAL HISTORY 1. She has a history of prior stress fracture right tibia. 2. Chronic back pain. 3. Hypertension. 4. Migraine headaches. 5. Uterine cancer. 6. Diabetes. 7. Urinary incontinence. 8. Laparoscopic cholecystectomy. 9. Appendectomy. 10. Hysterectomy. 11. Lumbar surgery. ALLERGIES NO KNOWN DRUG ALLERGIES. MEDICATIONS Home medications: 1. Morphine. 2. Venlafaxine. 3. Sumatriptan. 4. Atenolol. 5. Flexeril. 6. Clonazepam. SOCIAL HISTORY Denies alcohol, tobacco or drug use. REVIEW OF SYSTEMS 12-point review of systems was performed and negative unless otherwise noted in the history of present illness. PHYSICAL EXAMINATION VITAL SIGNS: Temperature 97, pulse 64, blood pressure 131/85 mmHg. GENERAL: Alert and oriented times three in no acute distress. HEENT: Exam shows pupils reactive to light and accommodation, extraocular movements are intact. NECK: No elevation of jugular venous distention. No thyromegaly. No lymphadenopathy. No carotid bruits. LUNGS: Clear to auscultation bilaterally. CARDIOVASCULAR: Regular rate and rhythm without murmurs, rubs or gallops. ABDOMEN: Nontender, nondistended. Good bowel sounds. No hepatosplenomegaly. EXTREMITIES: Show no clubbing, cyanosis or edema. Good peripheral pulses. NEUROLOGIC: Cranial nerves intact. Motor and sensory grossly intact. LABORATORY DATA WBC 8.3, hemoglobin 12.6, platelet count 210. INR is 1.0. Sodium 140, potassium 3.9, BUN is 19, creatinine 0.99. Troponin 0.61. Electrocardiogram sinus rhythm, no significant ischemic changes. ASSESSMENT 1. Chn-XA-vxlblthib SD 2. Hypertension. 3. Diabetes. PLAN Given the patient's suggestive symptoms, elevated troponin, her presentation is consistent with acute coronary syndrome. We discussed the risks, benefits and alternatives of cardiac catheterization. She is agreeable to proceed forward. No utility at this point for stress testing. I will make her n.p.o. Called the catheterization lab and anticipate cardiac cath later this morning. MD ROSENDA Zuniga/KK /10:10 AM /5:08 PM
--- NOTE | 2017-03-11 18:09 | MA ---
cc: ANGELA YUSUF MD DATE OF CATHETERIZATION 03/11/17 INDICATION Icx-CO-vxrbpxlkd WI. PROCEDURE PERFORMED 1. Fluoroscopy with interpretation. 2. Left heart catheterization 3. Coronary angiography. METHOD The risks, benefits, alternatives discussed with the patient. The patient understood, consented to the procedure. The patient brought to the cardiac catheterization lab and placed on the catheterization table. Right wrist was prepped and draped in sterile fashion. Right wrist was anesthetized with 2% lidocaine. Right radial artery is cannulated, 6-Spanish 7 cm sheath was placed without difficulty. Left heart catheterization: Intraoperative hemodynamics measured at 126/5 mmHg. CORONARY ANGIOGRAPHY 1. Left main coronary angiographically normal. 2. Left anterior descending coronary is angiographically normal, large diagonal branch, very small distal LAD itself. 3. Circumflex gives rise to an obtuse marginal branch, angiographically normal. 4. Right coronary is an angiographically normal dominant vessel. CONCLUSION 1. Angiographically normal coronary arteries. PLAN Not clear for the underlying etiology to her elevated troponin, could be demand mediated or possibly vasospasm. Either way no obstructive disease requiring intervention. She can be treated conservatively. She can follow up with her primary care physician as an outpatient. We will sign off. Okay to discharge later today. MD ROSENDA Zuniga/YONG /12:21 PM /5:56 PM
[2017-03-11] MEDS ORDERED: MORPHINE SULFATE 30 MG CONTROLLED RELEASE TAB PO SCH (21:00)
--- NOTE | 2017-03-11 23:56 | HHI.PR ---
Addendum to Inpatient Note Additional Information Ms. Gonzalez came in with chest pain with typical features (substernal chest pain , radiating to the left arm). Her troponins were significantly elevated. Thus, NSTEMI was the working diagnosis. She was quickly evaluated by Cardiology and patient underwent cardiac cath which did not show any significant CAD. This was somewhat unexpected given patient's elevated troponins. Since cath was negative , patient was appropriately discharged home. However, it is felt that initial admission to full admission status was appropriate due to NSTEMI. Jone Ramírez DO Mar 11, 2017 23:56
[2017-03-12] MEDS ORDERED: INFLUENZA VIRUS VACCINE (QUADRIVALENT) 0.5 ML SYR IM ONE (10:00)
[2017-03-12] MEDS ORDERED: PNEUMOCOCCAL POLYVALENT INJ 25 MCG/0.5 ML SYR IM ONE (10:00)
== END 2017-03-11 15:30 | disposition home or self-care (01) | DRG 287 ==
LOC: NEPE 01:29 → NEDA 03:40 → NEPHCDU 06:02 → OBSVTOIN 08:58 → HCIS 10:44 → NEPHCDU 10:54 → HCIS 11:31 → HDIC 15:10
PROVIDERS: ADMIT Hospitalist; ATTEND Hospitalist
PROC: B2111ZZ Fluoroscopy of Multiple Coronary Arteries using Low Osmolar Contrast (ICD-10-PCS; 2017-03-11)
PROC: 4A023N7 Measurement of Cardiac Sampling and Pressure, Left Heart, Percutaneous Approach (ICD-10-PCS; principal; 2017-03-11 11:15)
DX: I20.1 Angina pectoris with documented spasm (principal); I10 Essential (primary) hypertension; G89.29 Other chronic pain; M54.31 Sciatica, right side; G43.909 Migraine, unspecified, not intractable, without status migrainosus; F32.9 Major depressive disorder, single episode, unspecified; F41.9 Anxiety disorder, unspecified; Z85.41 Personal history of malignant neoplasm of cervix uteri
CPT/HCPCS: 70450; 71010; 80053; 82550; 83690; 83735; 83880; 84484; 85025; 85027; 85610; 85730; 93005; 93454; 99285; C1769; C1893; J1644; J2060; J2250; J3010

== ENCOUNTER 2017-06-09 16:21 | Emergency (ER) | payer MEDICARE ==
[~2017-06-09] VITALS: Ht 162.6 cm; Wt 77.0 kg
[2017-06-09] VITALS (9 sets, daily range): BP systolic 143–173; BP diastolic 75–94; PULSE 63–94; RESP 16–20; TEMP 98.7; O2SAT 98–100
[~2017-06-09 16:21] MED LIST changes: +ASPI81TA23 PO; +CYCL10TA PO; -CYCL1TAB29 PO; +PANT20 PO
[2017-06-09 17:29] LABS: BICARBONATE 25.7 MEQ/L (21.0-32.0); POTASSIUM 3.9 MEQ/L (3.5-5.1)
[2017-06-09 17:34] LABS: BASOPHIL % 0.7 % (0.0-2.0); EOSINOPHIL # 0.1 TH/MM3 (0-0.4); EOSINOPHIL % 1.1 % (0.0-4.0); HEMATOCRIT 39.5 % (35.0-46.0); HEMO FLAGS DIFF FINAL; LYMPH % 24.2 % (9.0-44.0); LYMPHOCYTE # 1.5 TH/MM3 (1.0-4.8); MEAN CELL VOLUME 90.3 FL (80.0-100.0); MEAN CORPUSCULAR HEMOGLOBIN 29.9 PG (27.0-34.0); MEAN CORPUSCULAR HGB CONC 33.1 % (32.0-36.0); MONO % 7.9 % (0.0-8.0); NEUT % 66.1 % (16.0-70.0); PLATELET COUNT 232 TH/MM3 (150-450); RED BLOOD COUNT 4.38 MIL/MM3 (4.00-5.30); RED CELL DISTRIBUTION WIDTH 15.7 % (11.6-17.2)
--- NOTE | 2017-06-09 19:11 | PD ---
HPI Chief Complaint: Hypertension Time Seen by Provider: 18:30 Travel History International Travel<30 days: No Contact w/Intl Traveler<30days: No Traveled to known affect area: No History of Present Illness HPI Patient is a 66-year-old female presenting to the emergency for evaluation of hypertension. Patient states that she noticed it was elevated on Friday, she was unable to contact her primary doctor at that time because it was after hours. She states that is been high all weekend with a systolic around 200. When she contacted her doctor today she was told that he would not be in the office after 2 PM and to come to the emergency department for evaluation. Patient reports having 3 episodes of loose stools over the weekend on a daily basis. She denies any abdominal pain, chest pain, shortness of breath, nausea, vomiting, fever, chills, headache, palpitations. She states that she is having a cystoscopy tomorrow due to urinary incontinence. She has no other complaints at this time. She states that she took 10 mg of lisinopril at 10 AM this morning. She normally only takes metoprolol 50 mg twice daily. She states she was taken off of lisinopril by her doctor because her blood pressure was low. PFSH Past Medical History Hx Anticoagulant Therapy: Yes Arthritis: Yes Cancer: Yes (hx cervical ca and surgery that followed) Gastrointestinal Disorders: Yes GERD: Yes Genitourinary: Yes (incontinence) Hypertension: Yes Neurologic: Yes (back problems and two back surgeries cervical and lumbar) Menopausal: Yes Past Surgical History Appendectomy: Yes Cholecystectomy: Yes Hysterectomy: Yes Neurologic Surgery: Yes (L2-L5 FUSION) Other Surgery: Yes Social History Alcohol Use: No Tobacco Use: No Substance Use: No Allergies-Medications (Allergen,Severity, Reaction): Coded Allergies: No Known Allergies (Unverified Adverse Reaction, Unknown, 06/09/17) Reported Meds & Prescriptions Reported Meds & Active Scripts Active Protonix (Pantoprazole Sodium) 20 Mg Tab 20 Mg PO BID Aspirin EC (Aspirin) 81 Mg Tabdr 81 Mg PO DAILY Reported Morphine IR (Morphine Sulfate) 30 Mg Tab 30 Mg PO Q8HR PRN Venlafaxine ER 24 HR (Venlafaxine HCl) 150 Mg Tab 150 Mg PO BID Sumatriptan (Sumatriptan Succinate) 100 Mg Tab 100 Mg PO ONCE PRN If a satisfactory response has not been obtained at 2 hours, a second dose may be administered Atenolol 50 Mg Tab 50 Mg PO DAILY Flexeril (Cyclobenzaprine HCl) 10 Mg Tab 10 Mg PO TID Morphine ER (Morphine Sulfate) 30 Mg Tab 30 Mg PO BID Clonazepam 1 Mg Tab 1 Mg PO TID Review of Systems Except as stated in HPI: all other systems reviewed are Neg Eyes: No: Blurred Vision HENT: No: Headaches Cardiovascular: No: Chest Pain or Discomfort, Diaphoresis, Dyspnea on exertion Respiratory: No: Shortness of Breath Gastrointestinal: Positive: Changes in Bowel Habits, No: Nausea, Vomiting, Abdominal Pain Genitourinary: Positive: Incontinence, No: Dysuria Musculoskeletal: No: Myalgias Neurologic: No: Weakness, Dizziness, Syncope Physical Exam Narrative GENERAL: Well-developed, well-nourished, alert female. Resting comfortably in no acute distress. SKIN: Warm and dry. HEAD: Atraumatic. Normocephalic. EYES: Pupils equal and round. No scleral icterus. No injection or drainage. ENT: No nasal bleeding or discharge. Mucous membranes pink and moist. NECK: Trachea midline. No JVD. CARDIOVASCULAR: Regular rate and rhythm. RESPIRATORY: No accessory muscle use. Clear to auscultation. Breath sounds equal bilaterally. GASTROINTESTINAL: Abdomen soft, non-tender, nondistended. Hepatic and splenic margins not palpable. Positive bowel sounds, no rebound, no guarding MUSCULOSKELETAL: Extremities without clubbing, cyanosis, or edema. No obvious deformities. NEUROLOGICAL: Awake and alert. No obvious cranial nerve deficits. Motor grossly within normal limits. Five out of 5 muscle strength in the arms and legs. Normal speech. PSYCHIATRIC: Appropriate mood and affect; insight and judgment normal. Data Data Last Documented VS Vital Signs Date Time Temp Pulse Resp B/P (MAP) Pulse Ox O2 Delivery O2 Flow Rate FiO2 06/09/17 21:00 68 20 152/75 (100) 100 Room Air 06/09/17 16:25 98.7 Orders Orders Complete Blood Count With Diff (06/09/17 16:35) Basic Metabolic Panel (Bmp) (06/09/17 16:35) Urinalysis - C+S If Indicated (06/09/17 16:35) Lipase (06/09/17 18:23) Amlodipine (Norvasc) (06/09/17 19:45) Urine Culture (06/09/17 19:43) Labs Laboratory Tests Test 06/09/17 17:06 06/09/17 19:43 White Blood Count 6.0 TH/MM3 Red Blood Count 4.38 MIL/MM3 Hemoglobin 13.1 GM/DL Hematocrit 39.5 % Mean Corpuscular Volume 90.3 FL Mean Corpuscular Hemoglobin 29.9 PG Mean Corpuscular Hemoglobin Concent 33.1 % Red Cell Distribution Width 15.7 % Platelet Count 232 TH/MM3 Mean Platelet Volume 7.6 FL Neutrophils (%) (Auto) 66.1 % Lymphocytes (%) (Auto) 24.2 % Monocytes (%) (Auto) 7.9 % Eosinophils (%) (Auto) 1.1 % Basophils (%) (Auto) 0.7 % Neutrophils # (Auto) 4.0 TH/MM3 Lymphocytes # (Auto) 1.5 TH/MM3 Monocytes # (Auto) 0.5 TH/MM3 Eosinophils # (Auto) 0.1 TH/MM3 Basophils # (Auto) 0.0 TH/MM3 CBC Comment DIFF FINAL Differential Comment Blood Urea Nitrogen 13 MG/DL Creatinine 0.92 MG/DL Random Glucose 100 MG/DL Calcium Level 8.7 MG/DL Sodium Level 140 MEQ/L Potassium Level 3.9 MEQ/L Chloride Level 107 MEQ/L Carbon Dioxide Level 25.7 MEQ/L Anion Gap 7 MEQ/L Estimat Glomerular Filtration Rate 61 ML/MIN Lipase 154 U/L Urine Color YELLOW Urine Turbidity CLEAR Urine pH 6.0 Urine Specific [place] 1.025 Urine Protein TRACE mg/dL Urine Glucose (UA) NEG mg/dL Urine Ketones NEG mg/dL Urine Occult Blood NEG Urine Nitrite NEG Urine Bilirubin NEG Urine Urobilinogen 2.0 MG/DL Urine Leukocyte Esterase MOD Urine RBC 3 /hpf Urine WBC 10 /hpf Urine Calcium Oxalate Crystals OCC /hpf Urine Mucus FEW /lpf Microscopic Urinalysis Comment CULTURE INDICATED MDM Medical Decision Making Medical Screen Exam Complete: Yes Emergency Medical Condition: Yes Interpretation(s) Vital Signs Date Time Temp Pulse Resp B/P (MAP) Pulse Ox O2 Delivery O2 Flow Rate FiO2 06/09/17 18:30 86 19 170/94 (119) 98 Room Air 06/09/17 18:30 83 19 97 Room Air 06/09/17 16:25 98.7 94 16 144/87 (106) 98 Differential Diagnosis Hypertensive urgency versus elevated blood pressure reading versus anxiety versus metabolic abnormality versus other Narrative Course Patient is a 66-year-old female presenting for evaluation of hypertension. Reported elevated blood pressure readings over the weekend and when she called her primary today she was advised to come to the emergency department. Patient has no physical complaints at this time. Patient is mildly hypertensive. Patient was protocol while in triage, labs ordered and pending. CBC and chemistry are unremarkable. Amlodipine 5 mg by mouth 1 dose ordered. Patient's blood pressure was reassessed approximately one hour after administration of amlodipine. Systolic is 152. Patient will be discharged home , she will be given a prescription for amlodipine due to repeated elevated blood pressure readings at home as well as in the emergency department. She is encouraged to follow-up with her doctor on Friday as advised by his office. She was encouraged return to emergency department for any new or worsening symptoms. Patient was also advised not to check her blood pressure repeatedly throughout the day to avoid becoming anxious. She verbalized understanding of instructions. Patient stable for discharge. Diagnosis Primary Impression: Hypertension Qualified Codes: I10 - Essential (primary) hypertension Referrals: Primary Care Physician 2 days Patient Instructions: General Instructions, Hypertension (DC) Additional Instructions: Follow-up with her primary doctor on Friday as scheduled Take medications as directed Return to emergency department for any new or worsening symptoms Med/Other Pt SpecificInfo: Prescription(s) given Scripts Amlodipine (Amlodipine) 5 Mg Tab 5 MG PO DAILY for Blood Pressure Management, #30 TAB 0 Refills Prov: Edie Baldwin 06/09/17 Disposition: 01 DISCHARGE HOME Condition: Stable Edie Baldwin Jun 09, 2017 19:11
[2017-06-09] MEDS ORDERED: amLODIPine BESYLATE 5 MG TAB PO ONE (19:45)
[2017-06-09 20:31] LABS: BLOOD, URINE NEG (NEG); CALCIUM OXALATE CRYSTALS,URINE OCC /hpf; COMMENT (UR) CULTURE INDICATED; CULTURE IF INDICATED CULTURE INDICATED; GLUCOSE,URINE NEG (NEG); KETONE, URINE NEG (NEG); MUCUS URINE FEW /lpf (OCC); NITRITE,URINE NEG (NEG); URINE COLOR YELLOW (YELLW/STRAW)
[2017-06-09] MEDS ORDERED: AMLO5TAB2 PO (21:22)
== END 2017-06-09 22:18 | disposition home or self-care (01) ==
LOC: NEPE 16:21
DX: I10 Essential (primary) hypertension (principal); R32 Unspecified urinary incontinence; Z85.41 Personal history of malignant neoplasm of cervix uteri
CPT/HCPCS: 80048; 81001; 83690; 85025; 87086; 99283

== ENCOUNTER 2017-09-05 09:50 | Emergency (ER) | payer MEDICARE ==
[~2017-09-05] VITALS: Ht 162.6 cm; Wt 77.0 kg
[~2017-09-05 09:50] MED LIST changes: +AMLO5TAB2 PO
[2017-09-05 10:03] VITALS: BP 118/71; PULSE 110; RESP 18; TEMP 98.2; O2SAT 99
[2017-09-05 10:16] VITALS: BP 132/74; PULSE 130; RESP 18; O2SAT 99
[2017-09-05] MEDS ORDERED: OXYC1TAB36 PO (10:26)
[2017-09-05] MEDS ORDERED: METH10TA PO (10:26)
[2017-09-05] MEDS ORDERED: METO50TA PO (10:26)
[2017-09-05] MEDS ORDERED: LISI-515 PO (10:26)
[2017-09-05] MEDS ORDERED: GABA600T PO (10:26)
[2017-09-05] MEDS ORDERED: METOPROLOL TARTRATE 5 MG/5 ML VIAL IV PUSH STA (10:44)
[2017-09-05] MEDS ORDERED: METOPROLOL SUCCINATE 50 MG EXTENDED RELEASE TAB PO ONE (10:45)
[2017-09-05] MEDS ORDERED: SODIUM CHLOR 0.9% 1000 ML INJ 1,000 ML IV ONE (10:45)
[2017-09-05 11:25] VITALS: BP 119/61; PULSE 93; RESP 18; O2SAT 99
[2017-09-05 11:28] LABS: BASOPHIL % 1.3 % (0.0-2.0); EOSINOPHIL # 0.4 TH/MM3 (0-0.4); EOSINOPHIL % 10.1 % (0.0-4.0); HEMATOCRIT 39.8 % (35.0-46.0); HEMOGLOBIN 13.2 GM/DL (11.6-15.3); LYMPH % 25.6 % (9.0-44.0); MEAN CELL VOLUME 91.9 FL (80.0-100.0); MEAN CORPUSCULAR HEMOGLOBIN 30.5 PG (27.0-34.0); MEAN CORPUSCULAR HGB CONC 33.2 % (32.0-36.0); MEAN PLATELET VOLUME 8.5 FL (7.0-11.0); MONO % 8.3 % (0.0-8.0); MONOCYTE # 0.3 TH/MM3 (0-0.9); NEUT % 54.7 % (16.0-70.0); PLATELET COUNT 241 TH/MM3 (150-450); RED BLOOD COUNT 4.33 MIL/MM3 (4.00-5.30); RED CELL DISTRIBUTION WIDTH 14.5 % (11.6-17.2); WHITE BLOOD COUNT 3.7 TH/MM3 (4.0-11.0)
[2017-09-05 11:52] LABS: ALBUMIN 3.3 GM/DL (3.4-5.0); AST (GOT) 38 U/L (15-37); BICARBONATE 27.1 MEQ/L (21.0-32.0); BLOOD UREA NITROGEN 44 MG/DL (7-18); CALCIUM 9.4 MG/DL (8.5-10.1); CHLORIDE 108 MEQ/L (98-107); CREATININE 1.44 MG/DL (0.50-1.00); GLOMERULAR FILTRATION RATE 36 ML/MIN (>89); GLUCOSE,RANDOM 110 MG/DL (74-106); SODIUM (NA) 142 MEQ/L (136-145)
[2017-09-05 12:04] LABS: ALKALINE PHOSPHATASE 109 U/L (45-117); ALT (GPT) 45 U/L (10-53); TOTAL BILIRUBIN ADULT 0.2 MG/DL (0.2-1.0); TOTAL PROTEIN 7.2 GM/DL (6.4-8.2)
--- NOTE | 2017-09-05 12:25 | PD ---
HPI Chief Complaint: Chest Pain Time Seen by Provider: 10:35 Travel History International Travel<30 days: No Contact w/Intl Traveler<30days: No Traveled to known affect area: No History of Present Illness HPI Is a 66-year-old woman who presents to the emergency department complaining of high heart rate for the past 3 days or so. States she feels weak. She states her blood pressure was low and so she stopped her metoprolol extended release as well as her lisinopril. She takes chronic opiates, as well as clonazepam. She has had no other changes to her medications. She took clonazepam this morning but it did not help with her high heart rate or palpitations. She does have a history of anxiety. No other somatic complaints. History Past Medical History Narrative Medical Hypertension Chronic back pain, on chronic opiates Anxiety Tetanus Vaccination: < 5 Years Influenza Vaccination: Yes Menopausal: Yes Social History Alcohol Use: No Tobacco Use: No Allergies-Medications (Allergen,Severity, Reaction): Coded Allergies: No Known Allergies (Unverified Adverse Reaction, Unknown, 09/05/17) Reported Meds & Prescriptions Reported Meds & Active Scripts Active Aspirin EC (Aspirin) 81 Mg Tabdr 81 Mg PO DAILY Reported Oxycodone-Acetaminophen 10-325 mg Tab 1 Tab PO Q6H PRN Methadone (Methadone HCl) 10 Mg Tab 20 Mg PO TID Lisinopril 20 Mg Tab 20 Mg PO DAILY Gabapentin 600 Mg Tab 600 Mg PO TID Metoprolol Tartrate 50 Mg Tab 50 Mg PO DAILY Venlafaxine ER 24 HR (Venlafaxine HCl) 150 Mg Tab 150 Mg PO BID Sumatriptan (Sumatriptan Succinate) 100 Mg Tab 100 Mg PO ONCE PRN If a satisfactory response has not been obtained at 2 hours, a second dose may be administered Flexeril (Cyclobenzaprine HCl) 10 Mg Tab 10 Mg PO TID Clonazepam 1 Mg Tab 1 Mg PO TID Review of Systems Except as stated in HPI: all other systems reviewed are Neg Physical Exam Narrative GENERAL: Well-appearing 66-year-old woman, no acute distress. SKIN: Focused skin assessment warm/dry. HEAD: Atraumatic. Normocephalic. EYES: Pupils equal and round. No scleral icterus. No injection or drainage. ENT: No nasal bleeding or discharge. Mucous membranes pink and moist. NECK: Trachea midline. No JVD. CARDIOVASCULAR: Heart rate rapid but regular. No murmurs. RESPIRATORY: No accessory muscle use. Clear to auscultation. Breath sounds equal bilaterally. GASTROINTESTINAL: Abdomen soft, non-tender, nondistended. Hepatic and splenic margins not palpable. MUSCULOSKELETAL: No obvious deformities. No clubbing. No cyanosis. No edema. NEUROLOGICAL: Awake and alert. No obvious cranial nerve deficits. Motor grossly within normal limits. Normal speech. PSYCHIATRIC: Mildly anxious. Data Data Last Documented VS Vital Signs Date Time Temp Pulse Resp B/P (MAP) Pulse Ox O2 Delivery O2 Flow Rate FiO2 09/05/17 13:28 103 18 129/71 (90) 99 Room Air 09/05/17 10:03 98.2 Orders Orders Iv Access Insert/Monitor (09/05/17 10:42) Sodium Chlor 0.9% 1000 Ml Inj (Ns 1000 M (09/05/17 10:45) Metoprolol Succinate Er (Toprol Xl) (09/05/17 10:45) Complete Blood Count With Diff (09/05/17 10:42) Comprehensive Metabolic Panel (09/05/17 10:42) Thyroid Stimulating Hormone (09/05/17 10:42) Metoprolol Tartrate Inj (Lopressor Inj) (09/05/17 10:44) D-Dimer (09/05/17 10:44) Electrocardiogram (09/05/17 ) Total T3 (09/05/17 12:26) Free Thyroxine (T4) (09/05/17 12:26) Ed Discharge Order (09/05/17 13:29) Ed Discharge Order (09/05/17 13:30) Labs Laboratory Tests Test 09/05/17 10:30 White Blood Count 3.7 TH/MM3 Red Blood Count 4.33 MIL/MM3 Hemoglobin 13.2 GM/DL Hematocrit 39.8 % Mean Corpuscular Volume 91.9 FL Mean Corpuscular Hemoglobin 30.5 PG Mean Corpuscular Hemoglobin Concent 33.2 % Red Cell Distribution Width 14.5 % Platelet Count 241 TH/MM3 Mean Platelet Volume 8.5 FL Neutrophils (%) (Auto) 54.7 % Lymphocytes (%) (Auto) 25.6 % Monocytes (%) (Auto) 8.3 % Eosinophils (%) (Auto) 10.1 % Basophils (%) (Auto) 1.3 % Neutrophils # (Auto) 2.0 TH/MM3 Lymphocytes # (Auto) 1.0 TH/MM3 Monocytes # (Auto) 0.3 TH/MM3 Eosinophils # (Auto) 0.4 TH/MM3 Basophils # (Auto) 0.0 TH/MM3 CBC Comment DIFF FINAL Differential Comment D-Dimer Quantitative (PE/DVT) 0.85 MG/L FEU Blood Urea Nitrogen 44 MG/DL Creatinine 1.44 MG/DL Random Glucose 110 MG/DL Total Protein 7.2 GM/DL Albumin 3.3 GM/DL Calcium Level 9.4 MG/DL Alkaline Phosphatase 109 U/L Aspartate Amino Transf (AST/SGOT) 38 U/L Alanine Aminotransferase (ALT/SGPT) 45 U/L Total Bilirubin 0.2 MG/DL Sodium Level 142 MEQ/L Potassium Level 5.0 MEQ/L Chloride Level 108 MEQ/L Carbon Dioxide Level 27.1 MEQ/L Anion Gap 7 MEQ/L Estimat Glomerular Filtration Rate 36 ML/MIN Thyroid Stimulating Hormone 3rd Gen 0.116 uIU/ML MDM Medical Decision Making Medical Screen Exam Complete: Yes Emergency Medical Condition: Yes Interpretation(s) My review of EKG: Sinus tachycardia rate 125, normal axis, normal intervals, no definite evidence of acute ischemia. LABS: CBC is unremarkable. CMP remarkable for mild to have a BUN and creatinine. Mild elevated AST. TSH 0.116 D-dimer 0.85. Differential Diagnosis Anxiety, thyroid disease, beta jairo withdrawal, dehydration, other Narrative Course 66-year-old presents emergent with tachycardia. I think this is multifactorial. Thyroid studies are little bit abnormal. We will add T3 and free T4. I discussed this with her and she will follow-up with her primary doctor. I think most of this is from metoprolol withdrawal. She stopped this a couple days ago. States her blood pressure is low. We will have her hold her lisinopril, continue her metoprolol. She is given IV fluids for rehydration. Recommend outpatient follow-up. Diagnosis Primary Impression: Tachycardia Patient Instructions: General Instructions Additional Instructions: Start metoprolol tomorrow. Full your lisinopril until you see your primary doctor. Up with her primary doctor this week. You need s follow-up regarding your abnormal thyroid studies. Return to the emergency department for any new or worsening symptoms. Med/Other Pt SpecificInfo: No Change to Meds Disposition: 01 DISCHARGE HOME Condition: Stable Scooter Dawson MD Sep 05, 2017 12:25
[2017-09-05 13:28] VITALS: BP 129/71; PULSE 103; RESP 18; O2SAT 99
--- NOTE | 2017-09-05 21:44 | EKG ---
Date Performed: 09/05/2017 Time Performed: 10:38:30 PTAGE: 66 years EKG: SINUS TACHYCARDIA NONSPECIFIC T-WAVE ABNORMALITY Compared to previous tracing, ST T abnorma lity new from the prior tracing ABNORMAL RHYTHM ECG PREVIOUS TRACING : 03/11/2017 08.00 DOCTOR: Barak Betancur Interpretating Date/Time 09/05/2017 21:43:40
== END 2017-09-05 13:49 | disposition home or self-care (01) ==
LOC: NEPE 09:50
DX: R00.0 Tachycardia, unspecified (principal); M54.9 Dorsalgia, unspecified; G89.29 Other chronic pain; I10 Essential (primary) hypertension; F41.9 Anxiety disorder, unspecified; R94.31 Abnormal electrocardiogram [ECG] [EKG]; Z79.891 Long term (current) use of opiate analgesic
CPT/HCPCS: 80053; 84439; 84443; 85025; 85379; 93005; 96361; 96374; 99284; J7030

== ENCOUNTER 2017-10-24 18:21 | Emergency (ER) | payer MEDICARE ==
[~2017-10-24] VITALS: Ht 162.6 cm; Wt 75.0 kg
[~2017-10-24 18:21] MED LIST changes: -AMLO5TAB2 PO; -ATEN50TA PO; +GABA600T PO; +LISI-515 PO; +METH10TA PO; +METO50TA PO; -MORP1TAB25 PO; -MSIR30 PO; +OXYC1TAB36 PO; -PANT20 PO
[2017-10-24 18:31] VITALS: BP 102/58; PULSE 102; RESP 18; TEMP 98.1; O2SAT 98
[2017-10-24 21:05] VITALS: BP 126/75; PULSE 94; RESP 18; TEMP 98.3; O2SAT 95
[2017-10-24] MEDS ORDERED: SODIUM CHLOR 0.9% 1000 ML INJ 1,000 ML IV ONE (21:32)
[2017-10-24] MEDS ORDERED: SODIUM CHLORIDE 0.9% FLUSH 10 ML FLUSH IVF PRN (21:45)
--- NOTE | 2017-10-24 21:47 | PD ---
HPI . Low blood pressure Chief Complaint: Dizziness Time Seen by Provider: 20:42 Travel History International Travel<30 days: No Contact w/Intl Traveler<30days: No Traveled to known affect area: No History of Present Illness HPI This patient presents with chief complaint of low blood pressure associated with dizziness. She states that she was seen at urgent care center about 5 days ago because of an ankle injury. She was noted to be hypotensive there. She has been monitoring her blood pressure daily since that time. She states that she did stop her usual blood pressure medications. Despite this, her systolic blood pressure has continued to be 70-80 for the last week. Associated symptoms include blurred vision and somnolence. The patient denies any obvious GI blood loss. She denies polyuria/polydipsia. She denies vomiting or diarrhea currently. She does state that she had diarrhea several days ago but that it subsided with Imodium. She has not been running any fevers. PFSH Past Medical History Hx Anticoagulant Therapy: Yes Arthritis: Yes Cancer: Yes (hx cervical ca and surgery that followed) Cardiovascular Problems: Yes (HEART CATH, NO STENTS) Chest Pain: Yes Cerebrovascular Accident: Yes Diabetes: No Diminished Hearing: No Gastrointestinal Disorders: Yes GERD: Yes Genitourinary: Yes (incontinence) Hypertension: Yes Musculoskeletal: Yes (right tibia fracture 3 weeks ago, hx right ankle surgery post fall) Neurologic: Yes (back problems and two back surgeries cervical and lumbar) Menopausal: Yes Past Surgical History Abdominal Surgery: Yes (LAP COLLIE, APPENTECTOMY) Appendectomy: Yes Cholecystectomy: Yes Hysterectomy: Yes Neurologic Surgery: Yes (L2-L5 FUSION) Other Surgery: Yes Social History Alcohol Use: No Tobacco Use: No Substance Use: No Allergies-Medications (Allergen,Severity, Reaction): Coded Allergies: No Known Allergies (Unverified Adverse Reaction, Unknown, 09/05/17) Reported Meds & Prescriptions Reported Meds & Active Scripts Active Aspirin EC (Aspirin) 81 Mg Tabdr 81 Mg PO DAILY Reported Oxycodone-Acetaminophen 10-325 mg Tab 1 Tab PO Q6H PRN Methadone (Methadone HCl) 10 Mg Tab 20 Mg PO TID Lisinopril 20 Mg Tab 20 Mg PO DAILY Gabapentin 600 Mg Tab 600 Mg PO TID Metoprolol Tartrate 50 Mg Tab 50 Mg PO DAILY Venlafaxine ER 24 HR (Venlafaxine HCl) 150 Mg Tab 150 Mg PO BID Sumatriptan (Sumatriptan Succinate) 100 Mg Tab 100 Mg PO ONCE PRN If a satisfactory response has not been obtained at 2 hours, a second dose may be administered Flexeril (Cyclobenzaprine HCl) 10 Mg Tab 10 Mg PO TID Clonazepam 1 Mg Tab 1 Mg PO TID Review of Systems Except as stated in HPI: all other systems reviewed are Neg General / Constitutional: No: Fever, Chills Eyes: Positive: Blurred Vision HENT: Positive: Lightheadedness Cardiovascular: No: Chest Pain or Discomfort Respiratory: No: Shortness of Breath Gastrointestinal: No: Nausea, Vomiting, Diarrhea, Hematemesis, Hematochezia Genitourinary: Positive: Incontinence Neurologic: Positive: Weakness Physical Exam Narrative GENERAL: The patient moves very slowly. She speaks very slowly in a monotone and very deliberately. She is taking slow, deep breaths. SKIN: warm/dry. Normal color and turgor. HEAD: Normocephalic. Atraumatic. EYES: Pupils equal and round. No scleral icterus. No injection or drainage. ENT: No nasal bleeding or discharge. Mucous membranes pink and moist. NECK: Trachea midline. Full range of motion without pain.. CARDIOVASCULAR: Regular rate and rhythm. Heart sounds normal. RESPIRATORY: No accessory muscle use. Clear to auscultation. Breath sounds equal bilaterally. GASTROINTESTINAL: Abdomen soft. Nontender. Bowel sounds present. Nondistended. No pulsatile abdominal masses. RECTAL: Hard brown stool in the rectal vault. MUSCULOSKELETAL: No obvious deformities. NEUROLOGICAL: Awake and alert. No obvious cranial nerve deficits. Motor grossly within normal limits. Normal speech. PSYCHIATRIC: Appropriate mood and affect; insight and judgment normal. Data Data Last Documented VS Vital Signs Date Time Temp Pulse Resp B/P (MAP) Pulse Ox O2 Delivery O2 Flow Rate FiO2 10/24/17 21:56 16 97 Room Air 10/24/17 21:05 98.3 94 Orders Orders Electrocardiogram (10/24/17 ) Electrocardiogram (10/24/17 21:32) Complete Blood Count With Diff (10/24/17 21:32) Comprehensive Metabolic Panel (10/24/17 21:32) Troponin I (10/24/17 21:32) Urinalysis - C+S If Indicated (10/24/17 21:32) Ecg Monitoring (10/24/17 21:32) Iv Access Insert/Monitor (10/24/17 21:32) Oximetry (10/24/17 21:32) Sodium Chloride 0.9% Flush (Ns Flush) (10/24/17 21:45) Sodium Chlor 0.9% 1000 Ml Inj (Ns 1000 M (10/24/17 21:32) Orthostatic Vital Signs (10/24/17 21:32) Cath For Specimen (10/24/17 21:32) Nitroglycerin 2% Oint (Nitroglycerin 2% (10/24/17 23:15) Labs Laboratory Tests Test 10/24/17 21:45 10/24/17 22:00 White Blood Count 10.6 TH/MM3 Red Blood Count 4.08 MIL/MM3 Hemoglobin 12.6 GM/DL Hematocrit 38.2 % Mean Corpuscular Volume 93.8 FL Mean Corpuscular Hemoglobin 30.9 PG Mean Corpuscular Hemoglobin Concent 33.0 % Red Cell Distribution Width 14.4 % Platelet Count 212 TH/MM3 Mean Platelet Volume 7.4 FL Neutrophils (%) (Auto) 75.9 % Lymphocytes (%) (Auto) 16.3 % Monocytes (%) (Auto) 5.2 % Eosinophils (%) (Auto) 2.2 % Basophils (%) (Auto) 0.4 % Neutrophils # (Auto) 8.1 TH/MM3 Lymphocytes # (Auto) 1.7 TH/MM3 Monocytes # (Auto) 0.6 TH/MM3 Eosinophils # (Auto) 0.2 TH/MM3 Basophils # (Auto) 0.0 TH/MM3 CBC Comment DIFF FINAL Differential Comment Blood Urea Nitrogen 46 MG/DL Creatinine 1.47 MG/DL Random Glucose 80 MG/DL Total Protein 7.5 GM/DL Albumin 3.7 GM/DL Calcium Level 9.1 MG/DL Alkaline Phosphatase 113 U/L Aspartate Amino Transf (AST/SGOT) 10 U/L Alanine Aminotransferase (ALT/SGPT) 25 U/L Total Bilirubin 0.2 MG/DL Sodium Level 138 MEQ/L Potassium Level 5.2 MEQ/L Chloride Level 104 MEQ/L Carbon Dioxide Level 27.0 MEQ/L Anion Gap 7 MEQ/L Estimat Glomerular Filtration Rate 35 ML/MIN Troponin I LESS THAN 0.02 NG/ML Urine Color YELLOW Urine Turbidity CLEAR Urine pH 5.5 Urine Specific [place] 1.023 Urine Protein NEG mg/dL Urine Glucose (UA) NEG mg/dL Urine Ketones NEG mg/dL Urine Occult Blood NEG Urine Nitrite NEG Urine Bilirubin NEG Urine Urobilinogen LESS THAN 2.0 MG/DL Urine Leukocyte Esterase MOD Urine RBC 2 /hpf Urine WBC 8 /hpf Urine Squamous Epithelial Cells 1 /hpf Urine Amorphous Sediment RARE Urine Hyaline Casts 7 /lpf Urine Mucus FEW /lpf Microscopic Urinalysis Comment CULT NOT INDICATED MDM Medical Decision Making Medical Screen Exam Complete: Yes Emergency Medical Condition: Yes Interpretation(s) EKG shows a sinus rhythm with no ST segment elevation or depression Differential Diagnosis My differential diagnosis of hypotension includes but is not limited to acute blood loss, gastroenteritis, medication effect Narrative Course This patient presents complaining with low blood pressure for the last week. She shows me a systolic blood pressure recordings for the past week which are consistently about 80. Her blood pressure here is normal. We will check orthostatic vital signs. Basic labs have been ordered. She will be given a liter of fluid while awaiting her studies. CBC & BMP Diagram 10/24/17 21:45 Total Protein 7.5, Albumin 3.7, Calcium Level 9.1, Alkaline Phosphatase 113, Aspartate Amino Transf (AST/SGOT) 10 L, Alanine Aminotransferase (ALT/SGPT) 25, Total Bilirubin 0.2 UA contaminated but probably not infected. Orthostatic vital signs are negative. Systolic blood pressure has been over 100 the entire time that she has been here. [facility] Point of Care Internal Pos. & Neg. Controls: Passed Fecal Specimen Occult Blood: Negative Diagnosis Primary Impression: Hypotension Qualified Codes: I95.9 - Hypotension, unspecified Patient Instructions: General Instructions, Hypotension (DC) Disposition: 01 DISCHARGE HOME Condition: Stable Yuliya Hernández MD Oct 24, 2017 21:47
[2017-10-24 21:56] VITALS: RESP 16; O2SAT 97
[2017-10-24 22:05] LABS: AUTOMATED NEUTROPHIL # 8.1 TH/MM3 (1.8-7.7); BASOPHIL % 0.4 % (0.0-2.0); EOSINOPHIL # 0.2 TH/MM3 (0-0.4); EOSINOPHIL % 2.2 % (0.0-4.0); HEMATOCRIT 38.2 % (35.0-46.0); HEMOGLOBIN 12.6 GM/DL (11.6-15.3); LYMPH % 16.3 % (9.0-44.0); LYMPHOCYTE # 1.7 TH/MM3 (1.0-4.8); MEAN CELL VOLUME 93.8 FL (80.0-100.0); MEAN CORPUSCULAR HEMOGLOBIN 30.9 PG (27.0-34.0); MEAN PLATELET VOLUME 7.4 FL (7.0-11.0); MONO % 5.2 % (0.0-8.0); MONOCYTE # 0.6 TH/MM3 (0-0.9); NEUT % 75.9 % (16.0-70.0); PLATELET COUNT 212 TH/MM3 (150-450); RED BLOOD COUNT 4.08 MIL/MM3 (4.00-5.30); RED CELL DISTRIBUTION WIDTH 14.4 % (11.6-17.2); WHITE BLOOD COUNT 10.6 TH/MM3 (4.0-11.0)
[2017-10-24 22:18] LABS: AMORPHOUS SEDIMENT, URINE RARE; BILIRUBIN, URINE NEG (NEG); BLOOD, URINE NEG (NEG); GLUCOSE,URINE NEG (NEG); HYALINE CAST, URINE 7 /lpf (RARE); KETONE, URINE NEG (NEG); MUCUS URINE FEW /lpf (OCC); NITRITE,URINE NEG (NEG); PH, URINE 5.5 (5.0-8.5); SQUAMOUS EPITHELIAL CELL URINE 1 /hpf (0-5); URINE COLOR YELLOW (YELLW/STRAW); URINE LEUKOCYTE ESTERASE MOD (NEG)
[2017-10-24 22:31] LABS: ALBUMIN 3.7 GM/DL (3.4-5.0); AST (GOT) 10 U/L (15-37); BLOOD UREA NITROGEN 46 MG/DL (7-18); CALCIUM 9.1 MG/DL (8.5-10.1); CHLORIDE 104 MEQ/L (98-107); CREATININE 1.47 MG/DL (0.50-1.00); GLOMERULAR FILTRATION RATE 35 ML/MIN (>89); GLUCOSE,RANDOM 80 MG/DL (74-106); SODIUM (NA) 138 MEQ/L (136-145)
[2017-10-24 22:36] LABS: ALKALINE PHOSPHATASE 113 U/L (45-117); ALT (GPT) 25 U/L (10-53); TOTAL BILIRUBIN ADULT 0.2 MG/DL (0.2-1.0); TOTAL PROTEIN 7.5 GM/DL (6.4-8.2); TROPONIN I LESS THAN 0.02 NG/ML (0.02-0.05)
[2017-10-24] MEDS ORDERED: NITROGLYCERIN 2% OINT 1 GM PACKET TOPICAL ONE (23:15)
--- NOTE | 2017-10-25 19:26 | EKG ---
Date Performed: 10/24/2017 Time Performed: 18:40:04 PTAGE: 67 years EKG: SINUS TACHYCARDIA NONSPECIFIC T-WAVE ABNORMALITY ABNORMAL RHYTHM ECG Since PREVIOUS TRACING , no significant change noted PREVIOUS TRACIN09/05/2017 10.38 DOCTOR: Pawel Stuart Interpretating Date/Time 10/25/2017 19:24:03
== END 2017-10-25 00:52 | disposition home or self-care (01) ==
LOC: NEPC 18:21
DX: I95.9 Hypotension, unspecified (principal); I10 Essential (primary) hypertension; R42 Dizziness and giddiness; R00.0 Tachycardia, unspecified; R94.31 Abnormal electrocardiogram [ECG] [EKG]; M19.90 Unspecified osteoarthritis, unspecified site; K21.9 Gastro-esophageal reflux disease without esophagitis; Z86.73 Personal history of transient ischemic attack (TIA), and cerebral infarction without residual deficits; Z79.82 Long term (current) use of aspirin
CPT/HCPCS: 80053; 81001; 84484; 85025; 93005; 99284; J7030

== ENCOUNTER 2017-11-08 08:27 | Observation (INO) | payer MEDICARE ==
[2017-11-08] VITALS (7 sets, daily range): BP systolic 78–97; BP diastolic 49–55; PULSE 75–100; RESP 16–18; TEMP 98.3; O2SAT 97–100
[~2017-11-08] VITALS: Ht 162.6 cm; Wt 75.0 kg
[2017-11-08] MEDS ORDERED: SODIUM CHLORID 0.9% 500 ML INJ 500 ML IV ONE (09:30)
[2017-11-08 10:13] LABS: AUTOMATED NEUTROPHIL # 7.7 TH/MM3 (1.8-7.7); BASOPHIL % 0.4 % (0.0-2.0); EOSINOPHIL # 0.3 TH/MM3 (0-0.4); EOSINOPHIL % 3.1 % (0.0-4.0); HEMATOCRIT 36.9 % (35.0-46.0); HEMOGLOBIN 12.1 GM/DL (11.6-15.3); LYMPH % 19.9 % (9.0-44.0); LYMPHOCYTE # 2.2 TH/MM3 (1.0-4.8); MEAN CELL VOLUME 92.3 FL (80.0-100.0); MEAN CORPUSCULAR HEMOGLOBIN 30.3 PG (27.0-34.0); MEAN CORPUSCULAR HGB CONC 32.8 % (32.0-36.0); MONO % 6.1 % (0.0-8.0); MONOCYTE # 0.7 TH/MM3 (0-0.9); NEUT % 70.5 % (16.0-70.0); PLATELET COUNT 233 TH/MM3 (150-450); WHITE BLOOD COUNT 10.9 TH/MM3 (4.0-11.0)
[2017-11-08 10:29] LABS: ALBUMIN 3.5 GM/DL (3.4-5.0); ALT (GPT) 27 U/L (10-53); AST (GOT) 47 U/L (15-37); BICARBONATE 24.4 MEQ/L (21.0-32.0); BLOOD UREA NITROGEN 43 MG/DL (7-18); CALCIUM 8.7 MG/DL (8.5-10.1); CHLORIDE 106 MEQ/L (98-107); GLOMERULAR FILTRATION RATE 17 ML/MIN (>89); GLUCOSE,RANDOM 80 MG/DL (74-106); SODIUM (NA) 141 MEQ/L (136-145)
[2017-11-08 10:39] LABS: ALKALINE PHOSPHATASE 98 U/L (45-117); TOTAL BILIRUBIN ADULT 0.2 MG/DL (0.2-1.0); TOTAL PROTEIN 6.7 GM/DL (6.4-8.2)
--- NOTE | 2017-11-08 11:26 | PD ---
HPI Chief Complaint: General Weakness Time Seen by Provider: 08:48 Travel History International Travel<30 days: No Contact w/Intl Traveler<30days: No Traveled to known affect area: No History of Present Illness HPI Is a 67-year-old woman presents to the emergency department complaining of hypotension weakness and falls. She reports that over the past several weeks she has had low blood pressures routinely running in the 60s or 70s systolic at home. She reports that she stopped all of her home blood pressure medicines, as well as multiple of her pain medicines as well. Despite that she still having weakness lightheadedness and has fallen 4 times the past 24 hours. She has had several hospital visits that showed a little bit of renal insufficiency has been worsening but it been otherwise unremarkable. History Past Medical History Narrative Medical History of cervical CVA Hypertension Chronic back pain, on chronic opiates Menopausal: Yes Social History Alcohol Use: No Tobacco Use: No Allergies-Medications (Allergen,Severity, Reaction): Coded Allergies: No Known Allergies (Unverified Adverse Reaction, Unknown, 11/08/17) Reported Meds & Prescriptions Reported Meds & Active Scripts Active Aspirin EC (Aspirin) 81 Mg Tabdr 81 Mg PO DAILY Reported Oxycodone-Acetaminophen 10-325 mg Tab 1 Tab PO Q6H PRN Methadone (Methadone HCl) 10 Mg Tab 20 Mg PO TID Lisinopril 20 Mg Tab 20 Mg PO DAILY Gabapentin 600 Mg Tab 600 Mg PO TID Metoprolol Tartrate 50 Mg Tab 50 Mg PO DAILY Venlafaxine ER 24 HR (Venlafaxine HCl) 150 Mg Tab 150 Mg PO BID Sumatriptan (Sumatriptan Succinate) 100 Mg Tab 100 Mg PO ONCE PRN If a satisfactory response has not been obtained at 2 hours, a second dose may be administered Flexeril (Cyclobenzaprine HCl) 10 Mg Tab 10 Mg PO TID Clonazepam 1 Mg Tab 1 Mg PO TID Review of Systems Except as stated in HPI: all other systems reviewed are Neg Physical Exam Narrative GENERAL: 67-year-old woman, no acute distress. SKIN: Focused skin assessment warm/dry. HEAD: Atraumatic. Normocephalic. EYES: Pupils equal and round. No scleral icterus. No injection or drainage. ENT: No nasal bleeding or discharge. Mucous membranes pink and moist. NECK: Trachea midline. No JVD. CARDIOVASCULAR: Regular rate and rhythm. No murmur appreciated. RESPIRATORY: No accessory muscle use. Clear to auscultation. Breath sounds equal bilaterally. GASTROINTESTINAL: Abdomen soft, non-tender, nondistended. Hepatic and splenic margins not palpable. MUSCULOSKELETAL: No obvious deformities. No clubbing. No cyanosis. No edema. NEUROLOGICAL: Awake and alert. No obvious cranial nerve deficits. Motor grossly within normal limits. Normal speech. PSYCHIATRIC: Appropriate mood and affect; insight and judgment normal. Data Data Last Documented VS Vital Signs Date Time Temp Pulse Resp B/P (MAP) Pulse Ox O2 Delivery O2 Flow Rate FiO2 11/08/17 10:00 89 18 97/55 (69) 100 Room Air 11/08/17 08:30 98.3 Orders Orders Complete Blood Count With Diff (11/08/17 09:16) Comprehensive Metabolic Panel (11/08/17 09:16) Thyroid Stimulating Hormone (11/08/17 09:16) Cortisol (11/08/17 09:16) Iv Access Insert/Monitor (11/08/17 09:16) Sodium Chlorid 0.9% 500 Ml Inj (Ns 500 M (11/08/17 09:30) Labs Laboratory Tests Test 11/08/17 09:30 White Blood Count 10.9 TH/MM3 Red Blood Count 4.00 MIL/MM3 Hemoglobin 12.1 GM/DL Hematocrit 36.9 % Mean Corpuscular Volume 92.3 FL Mean Corpuscular Hemoglobin 30.3 PG Mean Corpuscular Hemoglobin Concent 32.8 % Red Cell Distribution Width 15.0 % Platelet Count 233 TH/MM3 Mean Platelet Volume 8.0 FL Neutrophils (%) (Auto) 70.5 % Lymphocytes (%) (Auto) 19.9 % Monocytes (%) (Auto) 6.1 % Eosinophils (%) (Auto) 3.1 % Basophils (%) (Auto) 0.4 % Neutrophils # (Auto) 7.7 TH/MM3 Lymphocytes # (Auto) 2.2 TH/MM3 Monocytes # (Auto) 0.7 TH/MM3 Eosinophils # (Auto) 0.3 TH/MM3 Basophils # (Auto) 0.0 TH/MM3 CBC Comment DIFF FINAL Differential Comment Blood Urea Nitrogen 43 MG/DL Creatinine 2.80 MG/DL Random Glucose 80 MG/DL Total Protein 6.7 GM/DL Albumin 3.5 GM/DL Calcium Level 8.7 MG/DL Alkaline Phosphatase 98 U/L Aspartate Amino Transf (AST/SGOT) 47 U/L Alanine Aminotransferase (ALT/SGPT) 27 U/L Total Bilirubin 0.2 MG/DL Sodium Level 141 MEQ/L Potassium Level 4.4 MEQ/L Chloride Level 106 MEQ/L Carbon Dioxide Level 24.4 MEQ/L Anion Gap 11 MEQ/L Estimat Glomerular Filtration Rate 17 ML/MIN Thyroid Stimulating Hormone 3rd Gen 0.508 uIU/ML Random Cortisol 8.0 MCG/DL [facility] Medical Decision Making Medical Screen Exam Complete: Yes Emergency Medical Condition: Yes Interpretation(s) LABS: CBC is unremarkable. CMP, remarkable for elevated BUN and creatinine Cortisol 8.0 Differential Diagnosis Adverse medication effect, dehydration, electrolyte abnormality, Nakul's, other Narrative Course Medical decision making This 59-year-old woman presents to the emergency department complaining of weakness, hypotension, falls. It does not seem like she is having syncopal episodes. She looks well. Blood pressures always been improved from what she is reporting at home. This is ongoing for a couple weeks now this is her third ED visit. Her renal function does appear to be worsening based on her blood work which is of unclear etiology. My impression is it is medication related. She states that she stopped her lisinopril metoprolol a week or so ago. States she takes half a metoprolol for blood pressure is elevated but has not taken anything in the past couple days. She reports she also is continuing only her long-acting methadone and not her breakthrough oxycodone Flexeril or Klonopin. Hesitancy when describing exactly what she was taking when she is her medications and I do have some suspicion that she may still be taking more medication as he lets on. I recommended that her manage the medications until we figure out the cause of hypotension. Given some hypotension of unclear etiology, frequent falls, worsening renal insufficiency, we will plan on admitting her for observation. Diagnosis Primary Impression: Hypotension Admitting Information Admitting Physician Requests: Observation Scooter Dawson MD Nov 08, 2017 11:26
[2017-11-08] MEDS ORDERED: NALOXONE HCL 0.4 MG/ML AMP IV PUSH PRN (17:45)
[2017-11-08] MEDS ORDERED: SODIUM CHLORIDE 0.9% FLUSH 10 ML FLUSH IV FLUSH PRN (17:45)
[2017-11-08] MEDS ORDERED: ACETAMINOPHEN 325 MG TAB PO PRN (17:45)
[2017-11-08] MEDS ORDERED: ONDANSETRON HCL 4 MG/2 ML VIAL IVP PRN (17:45)
[2017-11-08] MEDS: HEPARIN SODIUM - SQ 10,000 UNITS/ML VIAL SQ SCH (17:49)
[2017-11-08] MEDS: SODIUM CHLOR 0.9% 1000 ML INJ 1,000 ML IV SCH ×2 (17:49→21:21)
--- NOTE | 2017-11-08 17:58 | HHI.HP ---
[facility] Justice Albert MD Admission Diagnosis Hypotension, weakness Diagnoses: Chief Complaint: Hypotension, multiple falls, weakness Travel History International Travel<30 Days: No Contact w/Intl Traveler <30 Da: No Traveled to Known Affected Are: No History of Present Illness Written by Monique Locke, acting as scribe for Dr. Barrera on 11/08/17 at 17: 54. Patient is a 67-year-old female with primary medical history of chronic back and hip pain, on chronic pain management, anxiety, depression, HTN, incontinence 6 months who came to the hospital for low blood pressure and dizziness. Patient states that she came to the hospital secondary to low BP 3 days ago. Patient states that she felt dizzy walking the dog and she fell on her right side. Denies hitting her head, denies unconsciousness. Patient also states that she has been having problems staying awake, she mostly finds her self sleeping midway of conversations, watching TV. States that occasionally she would be waving she to somebody else and her would ask her who she waving on. Patient states that she stopped taking her BP medications since she came to the hospital last week 10/24/17 for the same reason of low blood pressure. She continues to take methadone and oxycodone. She also takes clonazepam and Flexeril. States taking only Flexeril at night when she goes to bed. Patient states that she has been on methadone 5 year secondary to chronic back pain, she has lower back and she has prior surgery. Reports back pain, 7/10, coming from her sacral all the way to her hip area and back area. States she gets relief from methadone and oxycodones. Denies SOB/ dyspnea. Denies chest pain, palpitations, headaches. Denies fevers, chills, n/v/d. Denies dysuria, reports incontinence. Review of Systems Except as stated in HPI: all other systems reviewed are Neg Past Family Social History Past Medical History Incontinence 6 months Chronic back and hip pain Anxiety Depression HTN Migraine History of cervical cancer Past Surgical History Cholecystectomy Appendectomy Lower back surgery Hysterectomy secondary to cervical cancer Reported Medications Reported Meds & Active Scripts Active Aspirin EC (Aspirin) 81 Mg Tabdr 81 Mg PO DAILY Reported Oxycodone-Acetaminophen 10-325 mg Tab 1 Tab PO Q6H PRN Methadone (Methadone HCl) 10 Mg Tab 20 Mg PO TID Lisinopril 20 Mg Tab 20 Mg PO DAILY Gabapentin 600 Mg Tab 600 Mg PO TID Metoprolol Tartrate 50 Mg Tab 50 Mg PO DAILY Venlafaxine ER 24 HR (Venlafaxine HCl) 150 Mg Tab 150 Mg PO BID Sumatriptan (Sumatriptan Succinate) 100 Mg Tab 100 Mg PO ONCE PRN If a satisfactory response has not been obtained at 2 hours, a second dose may be administered Flexeril (Cyclobenzaprine HCl) 10 Mg Tab 10 Mg PO TID Clonazepam 1 Mg Tab 1 Mg PO TID Allergies: Coded Allergies: No Known Allergies (Unverified Adverse Reaction, Unknown, 11/08/17) Active Ordered Medications Current Medications Medications (Trade) Dose Ordered Sig/Fior Route Start Time Stop Time Status Last Admin Sodium Chloride 1,000 ml @ 100 mls/hr Q10H IV 11/08/17 17:31 11/08/17 17:49 (NS Flush) 2 ml UNSCH PRN IV FLUSH 11/08/17 17:45 (NS Flush) 2 ml BID IV FLUSH 11/08/17 21:00 (Tylenol) 650 mg Q4H PRN PO 11/08/17 17:45 (Zofran Inj) 4 mg Q6H PRN IVP 11/08/17 17:45 (Heparin Inj) 5,000 units Q12H SQ 11/08/17 18:00 11/08/17 17:49 (Narcan Inj) 0.4 mg UNSCH PRN IV PUSH 11/08/17 17:45 Family History Family history of cancer Social History Denies alcohol use Denies tobacco use Denies illicit drug use Physical Exam Vital Signs Vital Signs Date Time Temp Pulse Resp B/P (MAP) Pulse Ox O2 Delivery O2 Flow Rate FiO2 11/08/17 17:00 89 18 88/50 (63) 98 Room Air 11/08/17 15:00 86 16 91/52 (65) 99 Room Air 11/08/17 13:00 75 18 95/53 (67) 100 Room Air 11/08/17 10:00 89 18 97/55 (69) 100 Room Air 11/08/17 08:30 98.3 100 16 97/52 (67) 97 Physical Exam GENERAL: This is an obese, well-developed patient, in no apparent distress. SKIN: Warm and dry. HEAD: Atraumatic. Normocephalic. EYES: Pupils equal round and reactive. Extraocular motions intact. No scleral icterus. No injection or drainage. ENT: Nose without bleeding. Throat without erythema. Uvula midline. Airway patent. NECK: Trachea midline. No JVD or lymphadenopathy. Supple. CARDIOVASCULAR: Regular rate and rhythm without murmurs, gallops, or rubs. RESPIRATORY: Clear to auscultation. Breath sounds equal bilaterally. No wheezes , rales, or rhonchi. GASTROINTESTINAL: Abdomen soft, non-tender, nondistended. Bowel sounds hypoactive MUSCULOSKELETAL: Extremities without clubbing, cyanosis. Bilateral lower extremity trace. Midback mild tenderness to palpation. Kyphosis. NEUROLOGICAL: Awake. Slow psychomotor response. Slow and slurred speech. Cranial nerves II through XII intact. Motor and sensory grossly within normal limits. Laboratory Laboratory Tests Test 11/08/17 09:30 White Blood Count 10.9 Red Blood Count 4.00 Hemoglobin 12.1 Hematocrit 36.9 Mean Corpuscular Volume 92.3 Mean Corpuscular Hemoglobin 30.3 Mean Corpuscular Hemoglobin Concent 32.8 Red Cell Distribution Width 15.0 Platelet Count 233 Mean Platelet Volume 8.0 Neutrophils (%) (Auto) 70.5 Lymphocytes (%) (Auto) 19.9 Monocytes (%) (Auto) 6.1 Eosinophils (%) (Auto) 3.1 Basophils (%) (Auto) 0.4 Neutrophils # (Auto) 7.7 Lymphocytes # (Auto) 2.2 Monocytes # (Auto) 0.7 Eosinophils # (Auto) 0.3 Basophils # (Auto) 0.0 CBC Comment DIFF FINAL Differential Comment Blood Urea Nitrogen 43 Creatinine 2.80 Random Glucose 80 Total Protein 6.7 Albumin 3.5 Calcium Level 8.7 Alkaline Phosphatase 98 Aspartate Amino Transf (AST/SGOT) 47 Alanine Aminotransferase (ALT/SGPT) 27 Total Bilirubin 0.2 Sodium Level 141 Potassium Level 4.4 Chloride Level 106 Carbon Dioxide Level 24.4 Anion Gap 11 Estimat Glomerular Filtration Rate 17 Thyroid Stimulating Hormone 3rd Gen 0.508 Random Cortisol 8.0 Result Diagram: 11/08/1792911/08/17929 Caprini VTE Risk Assessment Caprini VTE Risk Assessment: Mod/High Risk (score >= 2) Caprini Risk Assessment Model Point Value = 1 Point Value = 2 Point Value = 3 Point Value = 5 Age 41-60 Minor surgery BMI > 25 kg/m2 Swollen legs Varicose veins or History of unexplained or recurrent spontaneous Oral contraceptives or hormone replacement Sepsis (< 1 month) Serious lung disease, including pneumonia (< 1 month) Abnormal pulmonary function Acute myocardial infarction Congestive heart failure (< 1 month) History of inflammatory bowel disease Medical patient at bed rest Age 61-74 Arthroscopic surgery Major open surgery (> 45 min) Laparoscopic surgery (> 45 min) Malignancy Confined to bed (> 72 hours) Immobilizing plaster cast Central venous access Age >= 75 History of VTE Family history of VTE Factor V Leiden Prothrombin [id number] Lupus anticoagulant Anticardiolipin antibodies Elevated serum homocysteine Heparin-induced thrombocytopenia Other congenital or acquired thrombophilia Stroke (< 1 month) Elective arthroplasty Hip, pelvis, or leg fracture Acute spinal cord injury (< 1 month) Prophylaxis Regimen Total Risk Factor Score Risk Level Prophylaxis Regimen 0-1 Low Early ambulation 2 Moderate Order ONE of the following: *Sequential Compression Device (SCD) *Heparin 5000 units SQ BID 3-4 Higher Order ONE of the following medications: *Heparin 5000 units SQ TID *Enoxaparin/Lovenox 40 mg SQ daily (WT < 150 kg, CrCl > 30 mL/min) *Enoxaparin/Lovenox 30 mg SQ daily (WT < 150 kg, CrCl > 10-29 mL/min) *Enoxaparin/Lovenox 30 mg SQ BID (WT < 150 kg, CrCl > 30 mL/min) AND/OR *Sequential Compression Device (SCD) 5 or more Highest Order ONE of the following medications: *Heparin 5000 units SQ TID (Preferred with Epidurals) *Enoxaparin/Lovenox 40 mg SQ daily (WT < 150 kg, CrCl > 30 mL/min) *Enoxaparin/Lovenox 30 mg SQ daily (WT < 150 kg, CrCl > 10-29 mL/min) *Enoxaparin/Lovenox 30 mg SQ BID (WT < 150 kg, CrCl > 30 mL/min) AND *Sequential Compression Device (SCD) Assessment and Plan Problem List: (1) Hypotension ICD Code: I95.9 - Hypotension, unspecified Status: Acute (2) Polypharmacy ICD Code: Z79.899 - Other residential (current) drug therapy Status: Acute (3) Chronic pain ICD Code: G89.29 - Other chronic pain Status: Acute (4) Medication side effect ICD Code: T88.7XXA - Unspecified adverse effect of drug or medicament, initial encounter Status: Acute Assessment and Plan Patient is a 67-year-old female with primary medical history of chronic back and hip pain, on chronic pain management, anxiety, depression, HTN, incontinence 6 months who came to the hospital for low blood pressure and dizziness. Hypotension, polypharmacy Encephalopathy, toxic Chronic back pain, chronic pain management -Patient is awake but she presents with slow psychomotor responses. Slow and Slurred speech. -Patient currently on methadone, Percocets, clonazepam, Flexeril, gabapentin which could contribute to slow response and hypotension -Discussed extensively explained with patient that her current regimen of medication can contribute to her hypotension especially with use of methadone. Patient was resending out that she has been on methadone for 5 years. Explained that this medication combined with other medications that she had for pain and neuropathy as well as muscle relaxants can contribute to her body unable to metabolize it. Verbalized understanding. Patient is unaware of her slow psychomotor response or slow speech. -Hold off on methadone, clonazepam, Flexeril, gabapentin. Will provide patient with low-dose Percocet for pain. -We will slowly restart other medications as needed at the lower dose, once patient improves -Monitor neurological status. Monitor BP trend. She has not taken her BP medications since 10/24/17. -IV fluids for hydration. -PT to eval and treat Acute kidney injury -Avoid nephrotoxins -IV fluid hydration as above -Monitor renal indicis DVT prop SCDs Code Status Full code Discussed Condition With Patient, nursing, ED attending Attending Statement This note was transcribed by elin Locke. I, Dr. Camron Saenz personally performed the history, physical exam, and medical decision making; and confirmed the accuracy of the information in the transcribed note. Authenticated by Dr. Camron Saenz on 11/08/17 18:35. Monique Angelse Nov 08, 2017 17:58 Camron Fuentes MD Nov 08, 2017 18:07
--- NOTE | 2017-11-08 19:08 | RADRPT ---
EXAM DATE/TIME: 11/08/2017 18:09 [facility] COMPARISON: No previous studies available for comparison. INDICATIONS : Increased BUN and Creatinine. MEDICAL HISTORY : Hypertension. Renal insufficiency. Chronic back pain. Cervical cancer. Gastroesophageal reflux. SURGICAL HISTORY : Fusion, lumbar. Appendectomy. Cholecystectomy. Hysterectomy. Right knee arthropasty. Right Rotator Cuff repair. ENCOUNTER: Initial ACUITY: 1 day PAIN SCORE: 2/10 LOCATION: Left flank MEASUREMENTS: RIGHT KIDNEY: 9.7 x 4.0 x 3.6 cm LEFT KIDNEY: 10.0 x 4.8 x 4.9 cm FINDINGS: RIGHT KIDNEY: Renal cortex is normal in thickness and echotexture. No hydronephrosis, stone, or mass. LEFT KIDNEY: Renal cortex is normal in thickness and echotexture. No hydronephrosis or mass. There is a 0.8 cm e chogenic focus in the central left kidney which may represent a nonobstructing stone. BLADDER: There is a 1 cm echogenic focus seen in the region of the right UVJ which could potentially represent a stone. Ureteral jets are seen bilaterally. CONCLUSION: 1. No hydronephrosis is seen. 2. Possible 0.8 cm nonobstructing left renal stone. 3. 1 cm possible stone at the right UVJ. Samuel Malik MD on November 08, 2017 at 19:02 Board Certified Radiologist. This report was verified electronically.
[2017-11-08] MEDS ORDERED: SODIUM CHLOR 0.9% 1000 ML INJ 1,000 ML IV ONE (20:30)
[2017-11-08] MEDS: SODIUM CHLORIDE 0.9% FLUSH 10 ML FLUSH IV FLUSH SCH (22:09)
[2017-11-09] VITALS (11 sets, daily range): BP systolic 79–124; BP diastolic 52–67; PULSE 64–95; RESP 12–24; O2SAT 98–99
[2017-11-09] MEDS: HEPARIN SODIUM - SQ 10,000 UNITS/ML VIAL SQ SCH (05:56)
[2017-11-09 06:13] LABS: AUTOMATED NEUTROPHIL # 2.2 TH/MM3 (1.8-7.7); BASOPHIL % 0.7 % (0.0-2.0); EOSINOPHIL # 0.6 TH/MM3 (0-0.4); EOSINOPHIL % 11.4 % (0.0-4.0); HEMATOCRIT 33.6 % (35.0-46.0); HEMOGLOBIN 10.9 GM/DL (11.6-15.3); LYMPH % 42.2 % (9.0-44.0); LYMPHOCYTE # 2.4 TH/MM3 (1.0-4.8); MEAN CELL VOLUME 95.5 FL (80.0-100.0); MEAN CORPUSCULAR HEMOGLOBIN 30.9 PG (27.0-34.0); MEAN CORPUSCULAR HGB CONC 32.3 % (32.0-36.0); MEAN PLATELET VOLUME 7.9 FL (7.0-11.0); MONO % 6.3 % (0.0-8.0); MONOCYTE # 0.4 TH/MM3 (0-0.9); NEUT % 39.4 % (16.0-70.0); PLATELET COUNT 168 TH/MM3 (150-450); RED BLOOD COUNT 3.52 MIL/MM3 (4.00-5.30); WHITE BLOOD COUNT 5.7 TH/MM3 (4.0-11.0)
[2017-11-09 06:38] LABS: ALBUMIN 2.9 GM/DL (3.4-5.0); ALKALINE PHOSPHATASE 82 U/L (45-117); ALT (GPT) 24 U/L (10-53); AST (GOT) 35 U/L (15-37); BICARBONATE 20.9 MEQ/L (21.0-32.0); BLOOD UREA NITROGEN 33 MG/DL (7-18); CALCIUM 7.6 MG/DL (8.5-10.1); CHLORIDE 114 MEQ/L (98-107); CREATININE 1.55 MG/DL (0.50-1.00); GLOMERULAR FILTRATION RATE 33 ML/MIN (>89); GLUCOSE,RANDOM 69 MG/DL (74-106); SODIUM (NA) 143 MEQ/L (136-145); TOTAL BILIRUBIN ADULT 0.2 MG/DL (0.2-1.0); TOTAL PROTEIN 5.7 GM/DL (6.4-8.2)
[2017-11-09] MEDS: SODIUM CHLORIDE 0.9% FLUSH 10 ML FLUSH IV FLUSH SCH (09:00)
[2017-11-09] MEDS ORDERED: oxyCODONE/ACETAMINOPHEN 10 MG/325 MG TAB PO PRN (12:00)
[2017-11-09] MEDS: SODIUM CHLOR 0.9% 1000 ML INJ 1,000 ML IV SCH (14:27)
--- NOTE | 2017-11-09 14:39 | HHI.PR ---
Subjective Remarks Patient is a 67-year-old female with primary medical history of chronic back and hip pain, on chronic pain management, anxiety, depression, HTN, incontinence 6 months who came to the hospital for low blood pressure and dizziness. Patient states that she came to the hospital secondary to low BP 3 days ago. Patient states that she felt dizzy walking the dog and she fell on her right side. Denies hitting her head, denies unconsciousness. Patient also states that she has been having problems staying awake, she mostly finds her self sleeping midway of conversations, watching TV. States that occasionally she would be waving she to somebody else and her would ask her who she waving on. Patient states that she stopped taking her BP medications since she came to the hospital last week 10/24/17 for the same reason of low blood pressure. She continues to take methadone and oxycodone. She also takes clonazepam and Flexeril. States taking only Flexeril at night when she goes to bed. Patient states that she has been on methadone 5 year secondary to chronic back pain, she has lower back and she has prior surgery. Reports back pain, 7/10, coming from her sacral all the way to her hip area and back area. States she gets relief from methadone and oxycodones. Denies SOB/ dyspnea. Denies chest pain, palpitations, headaches. Denies fevers, chills, n/v/d. Denies dysuria, reports incontinence. 4-8 WANTS TO GO HOME TODAY DW RN AND PT AND FAMILY CONTINUE ORAL FLUIDS AT HOME WATCH PAIN MEDS IF SBP <110 DO NOT TAKE PAIN MEDS Objective Vitals Vital Signs Date Time Temp Pulse Resp B/P (MAP) Pulse Ox O2 Delivery O2 Flow Rate FiO2 11/09/17 11:40 94 24 124/67 (86) 99 Room Air 11/09/17 10:47 84 19 107/57 (74) 99 Room Air 11/09/17 07:13 71 12 92/53 (66) 98 Nasal Cannula 1.00 11/09/17 06:33 65 18 95/61 (72) 98 Nasal Cannula 2.00 11/09/17 05:24 65 16 106/61 (76) 98 Nasal Cannula 2.00 11/09/17 04:28 65 16 112/54 (73) 98 Room Air 11/09/17 02:29 64 16 79/52 (61) 98 Room Air 11/09/17 01:00 64 16 80/54 (63) 98 Room Air 11/09/17 00:11 68 82/53 (63) 11/08/17 22:11 82 16 80/50 (60) 98 Room Air 11/08/17 20:23 82 16 78/49 (59) 98 Room Air 11/08/17 17:00 89 18 88/50 (63) 98 Room Air 11/08/17 15:00 86 16 91/52 (65) 99 Room Air I/O 11/08/17 11/08/17 11/08/17 11/09/17 11/09/17 11/09/17 07:00 15:00 23:00 07:00 15:00 23:00 Output Total 250 ml Balance -250 ml Output Urine Total 250 ml # Voids 1 Result Diagram: 11/09/17 0505 11/09/17 0505 Other Results Laboratory Tests Test 11/08/17 09:30 11/09/17 05:05 White Blood Count 10.9 TH/MM3 5.7 TH/MM3 Red Blood Count 4.00 MIL/MM3 3.52 MIL/MM3 Hemoglobin 12.1 GM/DL 10.9 GM/DL Hematocrit 36.9 % 33.6 % Mean Corpuscular Volume 92.3 FL 95.5 FL Mean Corpuscular Hemoglobin 30.3 PG 30.9 PG Mean Corpuscular Hemoglobin Concent 32.8 % 32.3 % Red Cell Distribution Width 15.0 % 15.0 % Platelet Count 233 TH/MM3 168 TH/MM3 Mean Platelet Volume 8.0 FL 7.9 FL Neutrophils (%) (Auto) 70.5 % 39.4 % Lymphocytes (%) (Auto) 19.9 % 42.2 % Monocytes (%) (Auto) 6.1 % 6.3 % Eosinophils (%) (Auto) 3.1 % 11.4 % Basophils (%) (Auto) 0.4 % 0.7 % Neutrophils # (Auto) 7.7 TH/MM3 2.2 TH/MM3 Lymphocytes # (Auto) 2.2 TH/MM3 2.4 TH/MM3 Monocytes # (Auto) 0.7 TH/MM3 0.4 TH/MM3 Eosinophils # (Auto) 0.3 TH/MM3 0.6 TH/MM3 Basophils # (Auto) 0.0 TH/MM3 0.0 TH/MM3 CBC Comment DIFF FINAL DIFF FINAL Differential Comment Blood Urea Nitrogen 43 MG/DL 33 MG/DL Creatinine 2.80 MG/DL 1.55 MG/DL Random Glucose 80 MG/DL 69 MG/DL Total Protein 6.7 GM/DL 5.7 GM/DL Albumin 3.5 GM/DL 2.9 GM/DL Calcium Level 8.7 MG/DL 7.6 MG/DL Alkaline Phosphatase 98 U/L 82 U/L Aspartate Amino Transf (AST/SGOT) 47 U/L 35 U/L Alanine Aminotransferase (ALT/SGPT) 27 U/L 24 U/L Total Bilirubin 0.2 MG/DL 0.2 MG/DL Sodium Level 141 MEQ/L 143 MEQ/L Potassium Level 4.4 MEQ/L 4.0 MEQ/L Chloride Level 106 MEQ/L 114 MEQ/L Carbon Dioxide Level 24.4 MEQ/L 20.9 MEQ/L Anion Gap 11 MEQ/L 8 MEQ/L Estimat Glomerular Filtration Rate 17 ML/MIN 33 ML/MIN Thyroid Stimulating Hormone 3rd Gen 0.508 uIU/ML Random Cortisol 8.0 MCG/DL Imaging Last Impressions Renal Ultrasound 11/08/17 0000 Signed Impressions: Service Date/Time: Wednesday, November 08, 2017 18:09 - CONCLUSION: 1. No hydronephrosis is seen. 2. Possible 0.8 cm nonobstructing left renal stone. 3. 1 cm possible stone at the right UVJ. Samuel Malik MD Objective Remarks GENERAL: SKIN: Warm and dry. HEAD: Atraumatic. Normocephalic. EYES: Pupils equal and round. No scleral icterus. No injection or drainage. ENT: No nasal bleeding or discharge. Mucous membranes pink and moist. NECK: Trachea midline. No JVD. CARDIOVASCULAR: Regular rate and rhythm. RESPIRATORY: No accessory muscle use. Clear to auscultation. Breath sounds equal bilaterally. GASTROINTESTINAL: Abdomen soft, non-tender, nondistended. Hepatic and splenic margins not palpable. MUSCULOSKELETAL: Extremities without clubbing, cyanosis, or edema. No obvious deformities. NEUROLOGICAL: Awake and alert. No obvious cranial nerve deficits. Motor grossly within normal limits. Five out of 5 muscle strength in the arms and legs. Normal speech. PSYCHIATRIC: Appropriate mood and affect; insight and judgment normal. Medications and IVs Current Medications Sodium Chloride 500 ml @ 1,000 mls/hr Q30M ONCE IV Last administered on at 10:04; Start 11/08/17 at 09:30; Stop 11/08/17 at 09:59; Status DC Sodium Chloride 1,000 ml @ 100 mls/hr Q10H IV Last administered on 11/08/17at 21 :21; Start 11/08/17 at 17:31 Sodium Chloride (NS Flush) 2 ml UNSCH PRN IV FLUSH FLUSH AFTER USING IV ACCESS ; Start 11/08/17 at 17:45 Sodium Chloride (NS Flush) 2 ml BID IV FLUSH Last administered on 11/08/17at 22: 09; Start 11/08/17 at 21:00 Acetaminophen (Tylenol) 650 mg Q4H PRN PO TEMP > 100.4; Start 11/08/17 at 17:45 Ondansetron HCl (Zofran Inj) 4 mg Q6H PRN IVP NAUSEA OR VOMITING; Start at 17:45 Heparin Sodium (Porcine) (Heparin Inj) 5,000 units Q12H SQ Last administered on 11/09/17at 05:56; Start 11/08/17 at 18:00 Naloxone HCl (Narcan Inj) 0.4 mg UNSCH PRN IV PUSH SEE LABEL COMMENTS; Start at 17:45 Sodium Chloride 1,000 ml @ 999 mls/hr BOLUS ONCE IV Last administered on at 20:30; Start 11/08/17 at 20:30; Stop 11/08/17 at 21:30; Status DC Oxycodone/ Acetaminophen (Percocet 10-325 Mg) 1 tab Q6H PRN PO PAIN 4-10 Last administered on 11/09/17at 11:58; Start 11/09/17 at 12:00 A/P Problem List: (1) Hypotension ICD Code: I95.9 - Hypotension, unspecified Status: Acute (2) Polypharmacy ICD Code: Z79.899 - Other skilled nursing (current) drug therapy Status: Acute (3) Chronic pain ICD Code: G89.29 - Other chronic pain Status: Acute (4) Medication side effect ICD Code: T88.7XXA - Unspecified adverse effect of drug or medicament, initial encounter Status: Acute Assessment and Plan Patient is a 67-year-old female with primary medical history of chronic back and hip pain, on chronic pain management, anxiety, depression, HTN, incontinence 6 months who came to the hospital for low blood pressure and dizziness. Hypotension, polypharmacy Encephalopathy, toxic Chronic back pain, chronic pain management -Patient is awake but she presents with slow psychomotor responses. Slow and Slurred speech. -Patient currently on methadone, Percocets, clonazepam, Flexeril, gabapentin which could contribute to slow response and hypotension -Discussed extensively explained with patient that her current regimen of medication can contribute to her hypotension especially with use of methadone. Patient was resending out that she has been on methadone for 5 years. Explained that this medication combined with other medications that she had for pain and neuropathy as well as muscle relaxants can contribute to her body unable to metabolize it. Verbalized understanding. Patient is unaware of her slow psychomotor response or slow speech. -Hold off on methadone, clonazepam, Flexeril, gabapentin. Will provide patient with low-dose Percocet for pain. -We will slowly restart other medications as needed at the lower dose, once patient improves -Monitor neurological status. Monitor BP trend. She has not taken her BP medications since 10/24/17. -IV fluids for hydration. -PT to eval and treat Acute kidney injury -Avoid nephrotoxins -IV fluid hydration as above -Monitor renal indicis DVT prop SCDs IMPROVED DC TO HOME TODAY NEEDS TO FOLLOW UP WITH PAIN MANAGEMENT AND PCP Discharge Planning DC TO HOME Clint Khan DO Nov 09, 2017 14:39
--- NOTE | 2017-11-09 14:43 | HHI.DS ---
Discharge Summary Admission Date Nov 08, 2017 at 12:29 Discharge Date: Nov 09, 2017 Admitting Diagnosis Hypotension, weakness (1) Hypotension ICD Code: I95.9 - Hypotension, unspecified Diagnosis: Principal Status: Acute (2) Polypharmacy ICD Code: Z79.899 - Other rn long term care (current) drug therapy Diagnosis: Principal Status: Acute (3) Chronic pain ICD Code: G89.29 - Other chronic pain Diagnosis: Secondary Status: Acute (4) Medication side effect ICD Code: T88.7XXA - Unspecified adverse effect of drug or medicament, initial encounter Diagnosis: Principal Status: Acute Procedures NONE Brief History - From Admission Patient is a 67-year-old female with primary medical history of chronic back and hip pain, on chronic pain management, anxiety, depression, HTN, incontinence 6 months who came to the hospital for low blood pressure and dizziness. Patient states that she came to the hospital secondary to low BP 3 days ago. Patient states that she felt dizzy walking the dog and she fell on her right side. Denies hitting her head, denies unconsciousness. Patient also states that she has been having problems staying awake, she mostly finds her self sleeping midway of conversations, watching TV. States that occasionally she would be waving she to somebody else and her would ask her who she waving on. Patient states that she stopped taking her BP medications since she came to the hospital last week 10/24/17 for the same reason of low blood pressure. She continues to take methadone and oxycodone. She also takes clonazepam and Flexeril. States taking only Flexeril at night when she goes to bed. Patient states that she has been on methadone 5 year secondary to chronic back pain, she has lower back and she has prior surgery. Reports back pain, 02/10, coming from her sacral all the way to her hip area and back area. States she gets relief from methadone and oxycodones. Denies SOB/ dyspnea. Denies chest pain, palpitations, headaches. Denies fevers, chills, n/v/d. Denies dysuria, reports incontinence. CBC/BMP: 11/09/17 0505 11/09/17 0505 Significant Findings Laboratory Tests Test 11/08/17 09:30 11/09/17 05:05 Neutrophils (%) (Auto) 70.5 % (16.0-70.0) Blood Urea Nitrogen 43 MG/DL (7-18) 33 MG/DL (7-18) Creatinine 2.80 MG/DL (0.50-1.00) 1.55 MG/DL (0.50-1.00) Aspartate Amino Transf (AST/SGOT) 47 U/L (15-37) Estimat Glomerular Filtration Rate 17 ML/MIN (>89) 33 ML/MIN (>89) Red Blood Count 3.52 MIL/MM3 (4.00-5.30) Hemoglobin 10.9 GM/DL (11.6-15.3) Hematocrit 33.6 % (35.0-46.0) Eosinophils (%) (Auto) 11.4 % (0.0-4.0) Eosinophils # (Auto) 0.6 TH/MM3 (0-0.4) Random Glucose 69 MG/DL (74-106) Total Protein 5.7 GM/DL (6.4-8.2) Albumin 2.9 GM/DL (3.4-5.0) Calcium Level 7.6 MG/DL (8.5-10.1) Chloride Level 114 MEQ/L (98-107) Carbon Dioxide Level 20.9 MEQ/L (21.0-32.0) Imaging Last Impressions Renal Ultrasound 11/08/17 0000 Signed Impressions: Service Date/Time: Wednesday, November 08, 2017 18:09 - CONCLUSION: 1. No hydronephrosis is seen. 2. Possible 0.8 cm nonobstructing left renal stone. 3. 1 cm possible stone at the right UVJ. Samuel Malik MD PE at Discharge GENERAL: SKIN: Warm and dry. HEAD: Atraumatic. Normocephalic. EYES: Pupils equal and round. No scleral icterus. No injection or drainage. ENT: No nasal bleeding or discharge. Mucous membranes pink and moist. NECK: Trachea midline. No JVD. CARDIOVASCULAR: Regular rate and rhythm. RESPIRATORY: No accessory muscle use. Clear to auscultation. Breath sounds equal bilaterally. GASTROINTESTINAL: Abdomen soft, non-tender, nondistended. Hepatic and splenic margins not palpable. MUSCULOSKELETAL: Extremities without clubbing, cyanosis, or edema. No obvious deformities. NEUROLOGICAL: Awake and alert. No obvious cranial nerve deficits. Motor grossly within normal limits. Five out of 5 muscle strength in the arms and legs. Normal speech. PSYCHIATRIC: Appropriate mood and affect; insight and judgment normal. Hospital Course Patient is a 67-year-old female with primary medical history of chronic back and hip pain, on chronic pain management, anxiety, depression, HTN, incontinence 6 months who came to the hospital for low blood pressure and dizziness. Patient states that she came to the hospital secondary to low BP 3 days ago. Patient states that she felt dizzy walking the dog and she fell on her right side. Denies hitting her head, denies unconsciousness. Patient also states that she has been having problems staying awake, she mostly finds her self sleeping midway of conversations, watching TV. States that occasionally she would be waving she to somebody else and her would ask her who she waving on. Patient states that she stopped taking her BP medications since she came to the hospital last week 10/24/17 for the same reason of low blood pressure. She continues to take methadone and oxycodone. She also takes clonazepam and Flexeril. States taking only Flexeril at night when she goes to bed. Patient states that she has been on methadone 5 year secondary to chronic back pain, she has lower back and she has prior surgery. Reports back pain, 7/10, coming from her sacral all the way to her hip area and back area. States she gets relief from methadone and oxycodones. Denies SOB/ dyspnea. Denies chest pain, palpitations, headaches. Denies fevers, chills, n/v/d. Denies dysuria, reports incontinence. 4-8 WANTS TO GO HOME TODAY DW RN AND PT AND FAMILY CONTINUE ORAL FLUIDS AT HOME WATCH PAIN MEDS IF SBP <110 DO NOT TAKE PAIN MEDS Pt Condition on Discharge: Good Discharge Disposition: Discharge Home Discharge Time: <= 30 minutes Discharge Instructions DIET: Follow Instructions for: As Tolerated, No Restrictions Speech Therapy-Diet Recommends: Regular Activities you can perform: Regular-No Restrictions Follow up Referrals: Pain Management - 3-5 Days PCP Follow-up - 3-5 Days Continued Medications: Aspirin DR (Aspirin EC) 81 Mg Tabdr 81 MG PO DAILY for Blood Clot Prevention, #30 TAB 0 Refills Clonazepam (Clonazepam) 1 Mg Tab 1 MG PO TID, #90 TAB 0 Refills Cyclobenzaprine (Flexeril) 10 Mg Tab 10 MG PO TID for Muscle Spasm, #90 TAB 0 Refills Gabapentin (Gabapentin) 600 Mg Tab 600 MG PO TID, #90 TAB 0 Refills Methadone (Methadone) 10 Mg Tab 20 MG PO TID, TAB 0 Refills Oxycodone-Acetaminophen (Oxycodone-Acetaminophen) 10-325 mg Tab 1 TAB PO Q6H PRN for PAIN, TAB 0 Refills Sumatriptan (Sumatriptan) 100 Mg Tab 100 MG PO ONCE PRN for MIGRAINE HEADACHE, TAB 0 Refills If a satisfactory response has not been obtained at 2 hours, a second dose may be administered Venlafaxine ER 24 HR (Venlafaxine ER 24 HR) 150 Mg Tab 150 MG PO BID, TAB 0 Refills Discontinued Medications: Lisinopril (Lisinopril) 20 Mg Tab 20 MG PO DAILY, #30 TAB 0 Refills Metoprolol Tartrate (Metoprolol Tartrate) 50 Mg Tab 50 MG PO DAILY, #30 TAB 0 Refills Clint Khan DO Nov 09, 2017 14:43
== END 2017-11-09 15:34 | disposition home or self-care (01) ==
LOC: NEPE 08:27 → NEDA 12:29 → NEDH 11-09 07:30
PROVIDERS: ADMIT Hospitalist; ATTEND Hospitalist
DX: I95.9 Hypotension, unspecified (principal); I10 Essential (primary) hypertension; G89.29 Other chronic pain; M54.9 Dorsalgia, unspecified; M54.5 Low back pain; M25.559 Pain in unspecified hip; Z79.891 Long term (current) use of opiate analgesic; N28.9 Disorder of kidney and ureter, unspecified; R42 Dizziness and giddiness; R32 Unspecified urinary incontinence; W19.XXXA Unspecified fall, initial encounter; G43.909 Migraine, unspecified, not intractable, without status migrainosus; R29.6 Repeated falls
CPT/HCPCS: 76775; 80053; 82533; 84443; 85025; 96360; 96361; 96372; 97163; 99285; G0378; G8987; G8988; J1644; J7030; J7040